=== PATIENT | male | born 1955 | race Caucasian/White ===

== ENCOUNTER 2018-02-06 14:48 | Inpatient (IN) | payer MEDICAID ==
[~2018-02-06] VITALS: Ht 167.6 cm; Wt 120.0 kg
[2018-02-06 16:00] LABS: BASOPHILS # (AUTO) 0.01 x10^3/uL (0-0.1); BASOPHILS % (AUTO) 0 % (0-1); EOSINOPHILS # (AUTO) 0.02 x10^3/uL (0-0.4); EOSINOPHILS % (AUTO) 0 % (1-7); LYMPHOCYTES % (AUTO) 6 % (22-44); MD NO; MEAN CORPUSCULAR HEMOGLOBIN 31.1 pg (27.5-34.5); MEAN CORPUSCULAR HGB CONC 33.2 g/dL (33.2-36.2); MEAN CORPUSCULAR VOLUME 93.6 fL (81-97); MEAN PLATELET VOLUME 7.6 fL (7.4-10.4); MONOCYTES # (AUTO) 1.32 x10^3/uL (0.2-0.8); MONOCYTES % (AUTO) 10 % (2-9); NEUTROPHILS # (AUTO) 11.04 x10^3/uL (1.8-6.8); NEUTROPHILS % (AUTO) 84 % (42-75); PLATELET COUNT 221 x10^3/uL (130-400); RED BLOOD COUNT 3.31 x10^6/uL (4.38-5.82); RED CELL DISTRIBUTION WIDTH 16.7 % (9.4-14.8)
[2018-02-06 16:12] LABS: ALBUMIN 1.8 g/dL (3.4-5.0); ANION GAP 9 mmol/L (5-15); CALCIUM 8.2 mg/dL (8.5-10.1); CHLORIDE 90 mmol/L (98-107); CREATININE 1.18 mg/dL (0.7-1.3)
[2018-02-06] MEDS ORDERED: AMPICILLIN/SULBACTAM 3 GM in SODIUM CHLORIDE 0.9% 100 ML IVPB ONE (16:30)
[2018-02-06 16:33] LABS: CREATINE KINASE, TOTAL 192 U/L (39-308); TROPONIN I < 0.015 ng/mL (0.000-0.045)
[2018-02-06] MEDS ORDERED: GLIM2TAB2 PO (17:18)
[2018-02-06] MEDS ORDERED: FURO20TA3 PO (17:18)
[2018-02-06] MEDS ORDERED: SPIR25TA5 PO (17:18)
[2018-02-06] MEDS ORDERED: GABA300C10 PO (17:18)
[2018-02-06] MEDS ORDERED: TAMS0.4C2 PO (17:18)
[2018-02-06] MEDS ORDERED: CHOL100012 PO (17:18)
[2018-02-06] MEDS ORDERED: SODIUM CHLORIDE 0.9% 1,000 ML IV ONE (17:32)
[2018-02-06] MEDS ORDERED: PIPERACILLIN/TAZO/PMX 3.375GM 50 ML ONE (17:58)
[2018-02-06] MEDS ORDERED: ONDANSETRON ODT 4 MG PO ONE (18:00)
[2018-02-06] MEDS ORDERED: MORPHINE SULFATE 4 MG/ML, 1ML IV PRN (18:00)
[2018-02-06] MEDS ORDERED: PIPERACILLIN/TAZO/PMX 3.375GM 50 ML IV ONE (18:00)
[2018-02-06] MEDS ORDERED: VANCOMYCIN PER PHARMACY MC ONE (18:00)
[2018-02-06] MEDS ORDERED: VANCOMYCIN 2,000 MG in SODIUM CHLORIDE 0.9% 500 ML IV ONE (18:00)
[2018-02-06] MEDS: INSULIN LISPRO 100 UNITS/ML, PEN SQ-INSULIN SCH (19:30)
[2018-02-06] MEDS ORDERED: VANCOMYCIN PER PHARMACY MC PRN (19:30)
[2018-02-06] MEDS ORDERED: ONDANSETRON 2MG/ML, 2ML IVPush PRN (19:30)
[2018-02-06 19:39] LABS: HCT (SEDRATE) 30.6 % (39.2-51.8)
[2018-02-06] MEDS ORDERED: POTASSIUM CHLORIDE 20 MEQ TAB.ER.PRT PO ONE (20:06)
[2018-02-06 20:15] VITALS: BP 149/82
[2018-02-06] MEDS ORDERED: PHARMACOKINETIC CONSULTATION MC ONE (20:30)
[2018-02-06] MEDS ORDERED: PHARMACOKINETIC MONITORING MC PRN (20:30)
[2018-02-06] MEDS: HEPARIN 5,000 UNITS/ML, 1ML SQ SCH (22:57)
[2018-02-06] MEDS: morphine SULFATE 10 MG/ML, 1ML IVPush PRN (22:57)
[2018-02-06] MEDS: FUROSEMIDE 20 MG TABLET PO SCH (22:58)
[2018-02-07] MEDS: PIPERACILLIN/TAZO/PMX 3.375GM 50 ML IV SCH ×4 (00:40→20:01)
[2018-02-07 01:21] VITALS: BP 137/68
[2018-02-07] MEDS: morphine SULFATE 10 MG/ML, 1ML IVPush PRN ×5 (03:19→23:00)
[2018-02-07] MEDS: INSULIN LISPRO 100 UNITS/ML, PEN SQ-INSULIN SCH ×4 (03:38→22:00)
[2018-02-07] MEDS: HEPARIN 5,000 UNITS/ML, 1ML SQ SCH ×3 (04:52→22:01)
[2018-02-07 05:01] LABS: ALANINE AMINOTRANSFERASE 30 U/L (12-78); ALBUMIN 1.6 g/dL (3.4-5.0); ANION GAP 3 mmol/L (5-15); CALCIUM 7.9 mg/dL (8.5-10.1); CHLORIDE 94 mmol/L (98-107)
[2018-02-07 05:04] LABS: ALKALINE PHOSPHATASE 463 U/L (45-117); BILIRUBIN,TOTAL 1.9 mg/dL (0.2-1.0); CREATININE 0.84 mg/dL (0.7-1.3); TOTAL PROTEIN 6.3 g/dL (6.4-8.2)
[2018-02-07 05:13] LABS: BASOPHILS # (AUTO) 0.04 x10^3/uL (0-0.1); BASOPHILS % (AUTO) 1 % (0-1); EOSINOPHILS % (AUTO) 1 % (1-7); LYMPHOCYTES # (AUTO) 0.82 x10^3/uL (1-3.4); LYMPHOCYTES % (AUTO) 10 % (22-44); MD NO; MEAN CORPUSCULAR HEMOGLOBIN 30.2 pg (27.5-34.5); MEAN CORPUSCULAR HGB CONC 32.4 g/dL (33.2-36.2); MEAN CORPUSCULAR VOLUME 93.2 fL (81-97); MEAN PLATELET VOLUME 7.8 fL (7.4-10.4); MONOCYTES # (AUTO) 0.69 x10^3/uL (0.2-0.8); MONOCYTES % (AUTO) 8 % (2-9); NEUTROPHILS # (AUTO) 6.72 x10^3/uL (1.8-6.8); NEUTROPHILS % (AUTO) 80 % (42-75); PLATELET COUNT 175 x10^3/uL (130-400); RED BLOOD COUNT 3.16 x10^6/uL (4.38-5.82); RED CELL DISTRIBUTION WIDTH 16.7 % (9.4-14.8)
[2018-02-07] MEDS: FUROSEMIDE 20 MG TABLET PO SCH ×2 (06:00→18:29)
[2018-02-07 06:51] VITALS: BP 130/49
[2018-02-07] MEDS: TAMSULOSIN 0.4 MG CAP.ER.24H PO SCH (08:49)
[2018-02-07] MEDS: SPIRONOLACTONE 25 MG TABLET PO SCH (08:49)
[2018-02-07] MEDS: GABAPENTIN 300 MG CAPSULE PO SCH (08:49)
[2018-02-07] MEDS: CHOLECALCIFEROL 1,000 UNIT TABLET PO SCH (08:50)
[2018-02-07] MEDS ORDERED: FUROSEMIDE 20 MG/2 ML IV ONE (09:00)
[2018-02-07 13:48] VITALS: BP 138/84
[2018-02-07] MEDS: VANCOMYCIN 2,500 MG in SODIUM CHLORIDE 0.9% 500 ML IV SCH (14:34)
[2018-02-07] MEDS ORDERED: VANCOMYCIN 2,200 MG in SODIUM CHLORIDE 0.9% 500 ML IV SCH (18:00)
[2018-02-07 19:45] VITALS: BP 132/78
[2018-02-08 01:22] VITALS: BP 132/71
[2018-02-08] MEDS: PIPERACILLIN/TAZO/PMX 3.375GM 50 ML IV SCH ×3 (02:33→20:18)
[2018-02-08] MEDS: morphine SULFATE 10 MG/ML, 1ML IVPush PRN ×2 (03:05→21:27)
[2018-02-08] MEDS: INSULIN LISPRO 100 UNITS/ML, PEN SQ-INSULIN SCH ×4 (04:00→23:05)
[2018-02-08] MEDS: HEPARIN 5,000 UNITS/ML, 1ML SQ SCH ×3 (05:00→21:01)
[2018-02-08 05:10] LABS: BASOPHILS # (AUTO) 0.03 x10^3/uL (0-0.1); BASOPHILS % (AUTO) 1 % (0-1); EOSINOPHILS # (AUTO) 0.09 x10^3/uL (0-0.4); EOSINOPHILS % (AUTO) 1 % (1-7); LYMPHOCYTES # (AUTO) 0.77 x10^3/uL (1-3.4); LYMPHOCYTES % (AUTO) 12 % (22-44); MD NO; MEAN CORPUSCULAR HEMOGLOBIN 31.2 pg (27.5-34.5); MEAN CORPUSCULAR HGB CONC 33.2 g/dL (33.2-36.2); MEAN CORPUSCULAR VOLUME 93.9 fL (81-97); MONOCYTES # (AUTO) 0.57 x10^3/uL (0.2-0.8); MONOCYTES % (AUTO) 9 % (2-9); NEUTROPHILS # (AUTO) 5.11 x10^3/uL (1.8-6.8); NEUTROPHILS % (AUTO) 78 % (42-75); PLATELET COUNT 167 x10^3/uL (130-400); RED BLOOD COUNT 2.99 x10^6/uL (4.38-5.82)
[2018-02-08 05:11] LABS: ALBUMIN 1.4 g/dL (3.4-5.0); ANION GAP 5 mmol/L (5-15); CALCIUM 7.8 mg/dL (8.5-10.1); CHLORIDE 97 mmol/L (98-107); CREATININE 0.77 mg/dL (0.7-1.3)
[2018-02-08] MEDS: FUROSEMIDE 20 MG TABLET PO SCH ×2 (05:57→18:35)
[2018-02-08] MEDS ORDERED: FUROSEMIDE 20 MG/2 ML IV ONE (06:00)
[2018-02-08 06:50] VITALS: BP 135/53
[2018-02-08] MEDS: SPIRONOLACTONE 25 MG TABLET PO SCH (08:14)
[2018-02-08] MEDS: GABAPENTIN 300 MG CAPSULE PO SCH (08:14)
[2018-02-08] MEDS: TAMSULOSIN 0.4 MG CAP.ER.24H PO SCH (08:14)
[2018-02-08] MEDS: CHOLECALCIFEROL 1,000 UNIT TABLET PO SCH (08:15)
[2018-02-08] MEDS: VANCOMYCIN 2,500 MG in SODIUM CHLORIDE 0.9% 500 ML IV SCH (13:09)
[2018-02-08] MEDS ORDERED: FENTANYL PF 250 MCG/5ML ONE (13:48)
[2018-02-08] MEDS ORDERED: MIDAZOLAM 1 MG/ML, 2ML ONE (13:48)
[2018-02-08] MEDS ORDERED: PROPOFOL 10 MG/ML, 20ML ONE (13:48)
[2018-02-08] MEDS ORDERED: ROCURONIUM 10MG/ML,5ML ONE (13:49)
[2018-02-08] MEDS ORDERED: SUCCINYLCHOLINE 20 MG/ML, 10ML ONE (13:50)
[2018-02-08] MEDS ORDERED: WATER-INJECTION,STERILE 10 ML IV ONE (14:28)
[2018-02-08] MEDS ORDERED: CEFAZOLIN 1,000 MG ONE ×2 (14:29)
[2018-02-08] MEDS ORDERED: MORPHINE SULFATE 4 MG/ML, 1ML IVPush PRN (14:30)
[2018-02-08] MEDS ORDERED: PROMETHAZINE 25 MG SUPP PR PRN (14:30)
[2018-02-08] MEDS ORDERED: ONDANSETRON 2MG/ML, 2ML IV PRN (14:30)
[2018-02-08] MEDS ORDERED: PROMETHAZINE 12.5 MG SUPP PR PRN (14:30)
[2018-02-08] MEDS ORDERED: ONDANSETRON ODT 8 MG PO PRN (14:30)
[2018-02-08] MEDS ORDERED: PROMETHAZINE 25 MG/ML, 1ML IV PRN (14:30)
[2018-02-08] MEDS ORDERED: ACETAMINOPHEN 325 MG TABLET PO PRN (14:30)
[2018-02-08] MEDS ORDERED: LABETALOL 5MG/ML, 20ML IV PRN (14:30)
[2018-02-08] MEDS ORDERED: hydrALAzine 20 MG/ML, 1ML IV PRN (14:30)
[2018-02-08] MEDS ORDERED: HYDROmorphone 1 MG/ML, 1ML IV PRN (14:30)
[2018-02-08] MEDS ORDERED: MEPERIDINE/PF 25MG/0.5ML IVPush PRN (14:30)
[2018-02-08] MEDS ORDERED: OXYcodone 5 MG/5 ML ORAL.SOL UDC PO PRN (14:30)
[2018-02-08] MEDS ORDERED: TOBRAMYCIN SULFATE 1.2 GM IMP ONE ×2 (14:36→15:00)
[2018-02-08] MEDS ORDERED: VANCOMYCIN 1,000 MG ONE (14:36)
[2018-02-08] MEDS ORDERED: OXYcodone 5 MG/5 ML ORAL.SOL UDC ONE (15:50)
[2018-02-08] MEDS ORDERED: FENTANYL PF 100 MCG/2ML ONE (15:50)
[2018-02-08] MEDS: FENTANYL PF 100 MCG/2ML IV PRN ×2 (16:03→16:15)
[2018-02-08 20:01] VITALS: BP 108/58
[2018-02-09 00:37] VITALS: BP 122/71
[2018-02-09] MEDS: morphine SULFATE 10 MG/ML, 1ML IVPush PRN ×4 (02:02→17:24)
[2018-02-09] MEDS: PIPERACILLIN/TAZO/PMX 3.375GM 50 ML IV SCH ×4 (02:35→22:03)
[2018-02-09] MEDS: INSULIN LISPRO 100 UNITS/ML, PEN SQ-INSULIN SCH ×4 (04:30→22:12)
[2018-02-09 05:41] LABS: ALBUMIN 1.5 g/dL (3.4-5.0); ANION GAP 3 mmol/L (5-15); CALCIUM 7.5 mg/dL (8.5-10.1); CHLORIDE 96 mmol/L (98-107)
[2018-02-09] MEDS: HEPARIN 5,000 UNITS/ML, 1ML SQ SCH ×3 (05:44→22:03)
[2018-02-09] MEDS: FUROSEMIDE 20 MG TABLET PO SCH ×2 (05:44→18:20)
[2018-02-09 05:46] LABS: ALANINE AMINOTRANSFERASE 25 U/L (12-78); ALKALINE PHOSPHATASE 398 U/L (45-117); BILIRUBIN,TOTAL 1.6 mg/dL (0.2-1.0); CREATININE 0.97 mg/dL (0.7-1.3); TOTAL PROTEIN 5.7 g/dL (6.4-8.2)
[2018-02-09 05:50] LABS: BASOPHILS # (AUTO) 0.03 x10^3/uL (0-0.1); BASOPHILS % (AUTO) 0 % (0-1); EOSINOPHILS # (AUTO) 0.04 x10^3/uL (0-0.4); EOSINOPHILS % (AUTO) 1 % (1-7); LYMPHOCYTES # (AUTO) 0.99 x10^3/uL (1-3.4); LYMPHOCYTES % (AUTO) 13 % (22-44); MD NO; MEAN CORPUSCULAR VOLUME 93.8 fL (81-97); MEAN PLATELET VOLUME 7.9 fL (7.4-10.4); MONOCYTES # (AUTO) 0.84 x10^3/uL (0.2-0.8); MONOCYTES % (AUTO) 11 % (2-9); NEUTROPHILS # (AUTO) 5.99 x10^3/uL (1.8-6.8); NEUTROPHILS % (AUTO) 76 % (42-75); PLATELET COUNT 224 x10^3/uL (130-400); RED CELL DISTRIBUTION WIDTH 16.7 % (9.4-14.8)
[2018-02-09 07:49] VITALS: BP 138/67
[2018-02-09] MEDS ORDERED: MORPHINE SULFATE 4 MG/ML, 1ML ONE (10:15)
[2018-02-09] MEDS: TAMSULOSIN 0.4 MG CAP.ER.24H PO SCH (10:33)
[2018-02-09] MEDS: CHOLECALCIFEROL 1,000 UNIT TABLET PO SCH (10:33)
[2018-02-09] MEDS: SPIRONOLACTONE 25 MG TABLET PO SCH (10:33)
[2018-02-09] MEDS: GABAPENTIN 300 MG CAPSULE PO SCH (10:33)
[2018-02-09] MEDS: BISACODYL 10 MG SUPP PR PRN (10:37)
[2018-02-09] MEDS: VANCOMYCIN 2,500 MG in SODIUM CHLORIDE 0.9% 500 ML IV SCH (13:00)
[2018-02-09 13:28] VITALS: BP 128/43
[2018-02-09] MEDS ORDERED: VANCOMYCIN 2,000 MG in SODIUM CHLORIDE 0.9% 500 ML IV SCH (15:30)
[2018-02-09] MEDS: VANCOMYCIN 2,000 MG in SODIUM CHLORIDE 0.9% 500 ML IV SCH (18:19)
[2018-02-10] VITALS (7 sets, daily range): BP systolic 105–139; BP diastolic 35–75
[2018-02-10] MEDS: morphine SULFATE 10 MG/ML, 1ML IVPush PRN ×3 (00:05→21:37)
[2018-02-10] MEDS: PIPERACILLIN/TAZO/PMX 3.375GM 50 ML IV SCH ×4 (04:15→23:07)
[2018-02-10] MEDS: INSULIN LISPRO 100 UNITS/ML, PEN SQ-INSULIN SCH ×5 (04:29→21:27)
[2018-02-10] MEDS: HEPARIN 5,000 UNITS/ML, 1ML SQ SCH ×3 (05:11→21:27)
[2018-02-10] MEDS: FUROSEMIDE 20 MG TABLET PO SCH ×2 (06:02→17:32)
[2018-02-10] MEDS: GABAPENTIN 300 MG CAPSULE PO SCH (10:13)
[2018-02-10] MEDS: TAMSULOSIN 0.4 MG CAP.ER.24H PO SCH (10:13)
[2018-02-10] MEDS: CHOLECALCIFEROL 1,000 UNIT TABLET PO SCH (10:13)
[2018-02-10] MEDS: SPIRONOLACTONE 25 MG TABLET PO SCH (10:13)
[2018-02-10] MEDS: VANCOMYCIN 2,000 MG in SODIUM CHLORIDE 0.9% 500 ML IV SCH (17:32)
[2018-02-11 00:25] VITALS: BP 117/42
[2018-02-11] MEDS: PIPERACILLIN/TAZO/PMX 3.375GM 50 ML IV SCH ×4 (04:56→22:36)
[2018-02-11] MEDS: HEPARIN 5,000 UNITS/ML, 1ML SQ SCH ×3 (04:57→23:32)
[2018-02-11 05:33] LABS: ANION GAP 4 mmol/L (5-15); CALCIUM 7.3 mg/dL (8.5-10.1); CHLORIDE 98 mmol/L (98-107)
[2018-02-11 05:34] LABS: CREATININE 0.98 mg/dL (0.7-1.3)
[2018-02-11 06:51] VITALS: BP 109/34
[2018-02-11] MEDS ORDERED: MAGNESIUM SULFATE 3 GM in SODIUM CHLORIDE 0.9% 100 ML IV ONE (07:30)
[2018-02-11] MEDS: INSULIN LISPRO 100 UNITS/ML, PEN SQ-INSULIN SCH ×4 (07:53→20:28)
[2018-02-11 07:58] VITALS: BP 118/53
[2018-02-11] MEDS: SPIRONOLACTONE 25 MG TABLET PO SCH (09:00)
[2018-02-11] MEDS: CHOLECALCIFEROL 1,000 UNIT TABLET PO SCH (10:02)
[2018-02-11] MEDS: FUROSEMIDE 20 MG TABLET PO SCH ×2 (10:03→18:46)
[2018-02-11] MEDS: GABAPENTIN 300 MG CAPSULE PO SCH (10:03)
[2018-02-11] MEDS: TAMSULOSIN 0.4 MG CAP.ER.24H PO SCH (10:03)
[2018-02-11 10:48] LABS: MEAN CORPUSCULAR HEMOGLOBIN 30.4 pg (27.5-34.5); MEAN CORPUSCULAR HGB CONC 33.1 g/dL (33.2-36.2); MEAN CORPUSCULAR VOLUME 91.9 fL (81-97); RED BLOOD COUNT 2.52 x10^6/uL (4.38-5.82); RED CELL DISTRIBUTION WIDTH 16.8 % (9.4-14.8)
[2018-02-11 11:03] LABS: MEAN PLATELET VOLUME 7.6 fL (7.4-10.4); PLATELET COUNT 118 x10^3/uL (130-400)
[2018-02-11 11:04] LABS: BASOPHILS # (AUTO) 0.04 x10^3/uL (0-0.1); BASOPHILS % (AUTO) 1 % (0-1); EOSINOPHILS # (AUTO) 0.13 x10^3/uL (0-0.4); EOSINOPHILS % (AUTO) 3 % (1-7); LYMPHOCYTES # (AUTO) 0.83 x10^3/uL (1-3.4); LYMPHOCYTES % (AUTO) 17 % (22-44); MD SCAN; MONOCYTES # (AUTO) 0.59 x10^3/uL (0.2-0.8); MONOCYTES % (AUTO) 12 % (2-9); NEUTROPHILS # (AUTO) 3.29 x10^3/uL (1.8-6.8); NEUTROPHILS % (AUTO) 68 % (42-75)
[2018-02-11 12:00] VITALS: BP 108/44
[2018-02-11 14:13] LABS: HEMOGLOBIN A1C 5.8 % (4.2-6.3)
[2018-02-11 19:05] VITALS: BP 112/61
[2018-02-11] MEDS: VANCOMYCIN 2,000 MG in SODIUM CHLORIDE 0.9% 500 ML IV SCH (20:13)
[2018-02-11] MEDS: morphine SULFATE 10 MG/ML, 1ML IVPush PRN (20:28)
[2018-02-12 01:03] VITALS: BP 118/65
[2018-02-12] MEDS: PIPERACILLIN/TAZO/PMX 3.375GM 50 ML IV SCH ×2 (04:30→10:24)
[2018-02-12 04:50] LABS: BASOPHILS # (AUTO) 0.02 x10^3/uL (0-0.1); BASOPHILS % (AUTO) 0 % (0-1); EOSINOPHILS # (AUTO) 0.11 x10^3/uL (0-0.4); EOSINOPHILS % (AUTO) 2 % (1-7); LYMPHOCYTES # (AUTO) 0.79 x10^3/uL (1-3.4); LYMPHOCYTES % (AUTO) 16 % (22-44); MD NO; MEAN CORPUSCULAR HEMOGLOBIN 30.1 pg (27.5-34.5); MEAN CORPUSCULAR VOLUME 91.2 fL (81-97); MEAN PLATELET VOLUME 7.8 fL (7.4-10.4); MONOCYTES # (AUTO) 0.67 x10^3/uL (0.2-0.8); MONOCYTES % (AUTO) 13 % (2-9); NEUTROPHILS # (AUTO) 3.41 x10^3/uL (1.8-6.8); NEUTROPHILS % (AUTO) 68 % (42-75); PLATELET COUNT 146 x10^3/uL (130-400); RED BLOOD COUNT 2.63 x10^6/uL (4.38-5.82); RED CELL DISTRIBUTION WIDTH 16.6 % (9.4-14.8)
[2018-02-12 04:55] LABS: ANION GAP 5 mmol/L (5-15); CALCIUM 7.5 mg/dL (8.5-10.1); CHLORIDE 99 mmol/L (98-107); CREATININE 0.91 mg/dL (0.7-1.3)
[2018-02-12] MEDS: FUROSEMIDE 20 MG TABLET PO SCH ×2 (05:37→17:43)
[2018-02-12 07:16] VITALS: BP 106/64
[2018-02-12] MEDS: morphine SULFATE 10 MG/ML, 1ML IVPush PRN ×2 (08:09→20:50)
[2018-02-12] MEDS: SPIRONOLACTONE 25 MG TABLET PO SCH (08:10)
[2018-02-12] MEDS: HEPARIN 5,000 UNITS/ML, 1ML SQ SCH ×2 (08:10→16:03)
[2018-02-12] MEDS: TAMSULOSIN 0.4 MG CAP.ER.24H PO SCH (08:10)
[2018-02-12] MEDS: INSULIN LISPRO 100 UNITS/ML, PEN SQ-INSULIN SCH ×4 (08:10→20:51)
[2018-02-12] MEDS: CHOLECALCIFEROL 1,000 UNIT TABLET PO SCH (08:11)
[2018-02-12] MEDS: GABAPENTIN 300 MG CAPSULE PO SCH (08:11)
[2018-02-12 12:38] VITALS: BP 106/65
[2018-02-12] MEDS: DAPTOMYCIN 800 MG in SODIUM CHLORIDE 0.9% 100 ML IV SCH (15:58)
[2018-02-12 18:52] VITALS: BP 113/61
[2018-02-13 01:47] VITALS: BP 128/74
[2018-02-13] MEDS: BISACODYL 10 MG SUPP PR PRN (04:36)
[2018-02-13 05:12] LABS: ANION GAP 2 mmol/L (5-15); CALCIUM 7.6 mg/dL (8.5-10.1); CHLORIDE 100 mmol/L (98-107); CREATININE 0.85 mg/dL (0.7-1.3)
[2018-02-13 05:13] LABS: ALANINE AMINOTRANSFERASE 20 U/L (12-78); ALBUMIN 1.3 g/dL (3.4-5.0)
[2018-02-13 05:15] LABS: ALKALINE PHOSPHATASE 308 U/L (45-117); BILIRUBIN,TOTAL 1.2 mg/dL (0.2-1.0); CREATINE KINASE, TOTAL 35 U/L (39-308); TOTAL PROTEIN 5.5 g/dL (6.4-8.2)
[2018-02-13] MEDS: FUROSEMIDE 20 MG TABLET PO SCH ×2 (05:58→17:44)
[2018-02-13 06:38] VITALS: BP 100/61
[2018-02-13] MEDS: HEPARIN 5,000 UNITS/ML, 1ML SQ SCH ×3 (08:09→16:02)
[2018-02-13] MEDS: CHOLECALCIFEROL 1,000 UNIT TABLET PO SCH (08:09)
[2018-02-13] MEDS: INSULIN LISPRO 100 UNITS/ML, PEN SQ-INSULIN SCH ×4 (08:09→19:57)
[2018-02-13] MEDS: TAMSULOSIN 0.4 MG CAP.ER.24H PO SCH (08:09)
[2018-02-13] MEDS: SPIRONOLACTONE 25 MG TABLET PO SCH (08:09)
[2018-02-13] MEDS: GABAPENTIN 300 MG CAPSULE PO SCH (08:09)
[2018-02-13 13:39] VITALS: BP 124/68
[2018-02-13] MEDS: DAPTOMYCIN 800 MG in SODIUM CHLORIDE 0.9% 100 ML IV SCH (16:02)
[2018-02-13] MEDS: OXYcodone/APAP 10/325MG TABLET PO PRN ×2 (16:19→22:27)
[2018-02-13 19:10] VITALS: BP 104/66
[2018-02-14] MEDS: HEPARIN 5,000 UNITS/ML, 1ML SQ SCH ×3 (00:12→17:30)
[2018-02-14 02:37] VITALS: BP 113/65
[2018-02-14] MEDS: FUROSEMIDE 20 MG TABLET PO SCH ×2 (05:23→17:33)
[2018-02-14] MEDS: OXYcodone/APAP 10/325MG TABLET PO PRN ×2 (05:23→20:05)
[2018-02-14] MEDS: INSULIN LISPRO 100 UNITS/ML, PEN SQ-INSULIN SCH ×4 (07:00→20:05)
[2018-02-14 07:47] VITALS: BP 101/60
[2018-02-14] MEDS: TAMSULOSIN 0.4 MG CAP.ER.24H PO SCH (09:14)
[2018-02-14] MEDS: SPIRONOLACTONE 25 MG TABLET PO SCH (09:14)
[2018-02-14] MEDS: GABAPENTIN 300 MG CAPSULE PO SCH (09:15)
[2018-02-14] MEDS: MAGNESIUM CHLORIDE 64 MG TABLET.DR PO SCH ×2 (09:15→20:05)
[2018-02-14] MEDS: CHOLECALCIFEROL 1,000 UNIT TABLET PO SCH (09:15)
[2018-02-14] MEDS: DAPTOMYCIN 800 MG in SODIUM CHLORIDE 0.9% 100 ML IV SCH (14:32)
[2018-02-14 14:52] VITALS: BP 137/73
[2018-02-14 18:48] VITALS: BP 116/44
[2018-02-15 00:09] VITALS: BP 110/67
[2018-02-15] MEDS: HEPARIN 5,000 UNITS/ML, 1ML SQ SCH ×3 (01:46→17:18)
[2018-02-15] MEDS: FUROSEMIDE 20 MG TABLET PO SCH ×2 (06:07→17:18)
[2018-02-15] MEDS: OXYcodone/APAP 10/325MG TABLET PO PRN ×2 (06:10→10:01)
[2018-02-15 06:53] VITALS: BP 137/69
[2018-02-15] MEDS: INSULIN LISPRO 100 UNITS/ML, PEN SQ-INSULIN SCH ×4 (07:00→20:31)
[2018-02-15] MEDS: CHOLECALCIFEROL 1,000 UNIT TABLET PO SCH (10:01)
[2018-02-15] MEDS: TAMSULOSIN 0.4 MG CAP.ER.24H PO SCH (10:01)
[2018-02-15] MEDS: GABAPENTIN 300 MG CAPSULE PO SCH (10:01)
[2018-02-15] MEDS: MAGNESIUM CHLORIDE 64 MG TABLET.DR PO SCH ×2 (10:02→20:31)
[2018-02-15] MEDS: SPIRONOLACTONE 25 MG TABLET PO SCH (10:08)
[2018-02-15 15:12] VITALS: BP 119/53
[2018-02-15] MEDS: DAPTOMYCIN 800 MG in SODIUM CHLORIDE 0.9% 100 ML IV SCH (17:17)
[2018-02-15 18:36] VITALS: BP 131/66
[2018-02-16 00:21] VITALS: BP 117/67
[2018-02-16] MEDS: HEPARIN 5,000 UNITS/ML, 1ML SQ SCH ×3 (01:42→17:12)
[2018-02-16] MEDS: FUROSEMIDE 20 MG TABLET PO SCH ×2 (06:31→19:28)
[2018-02-16 08:00] VITALS: BP 98/47
[2018-02-16] MEDS: INSULIN LISPRO 100 UNITS/ML, PEN SQ-INSULIN SCH ×4 (08:18→20:36)
[2018-02-16] MEDS: SPIRONOLACTONE 25 MG TABLET PO SCH (08:19)
[2018-02-16] MEDS: TAMSULOSIN 0.4 MG CAP.ER.24H PO SCH (08:19)
[2018-02-16] MEDS: CHOLECALCIFEROL 1,000 UNIT TABLET PO SCH (08:19)
[2018-02-16] MEDS: GABAPENTIN 300 MG CAPSULE PO SCH (08:20)
[2018-02-16] MEDS: MAGNESIUM CHLORIDE 64 MG TABLET.DR PO SCH ×2 (08:20→20:36)
[2018-02-16 14:00] VITALS: BP 119/67
[2018-02-16] MEDS: OXYcodone/APAP 10/325MG TABLET PO PRN ×2 (15:26→22:42)
[2018-02-16] MEDS: DAPTOMYCIN 800 MG in SODIUM CHLORIDE 0.9% 100 ML IV SCH (15:54)
[2018-02-16 20:02] VITALS: BP 121/58
[2018-02-17] MEDS: HEPARIN 5,000 UNITS/ML, 1ML SQ SCH ×3 (01:30→16:56)
[2018-02-17 02:00] VITALS: BP 107/49
[2018-02-17] MEDS: FUROSEMIDE 20 MG TABLET PO SCH ×2 (05:37→17:43)
[2018-02-17] MEDS: OXYcodone/APAP 10/325MG TABLET PO PRN ×2 (05:37→11:57)
[2018-02-17 06:42] VITALS: BP 114/58
[2018-02-17] MEDS: INSULIN LISPRO 100 UNITS/ML, PEN SQ-INSULIN SCH ×4 (08:20→22:41)
[2018-02-17] MEDS: CHOLECALCIFEROL 1,000 UNIT TABLET PO SCH (08:21)
[2018-02-17] MEDS: MAGNESIUM CHLORIDE 64 MG TABLET.DR PO SCH ×2 (08:21→22:29)
[2018-02-17] MEDS: SPIRONOLACTONE 25 MG TABLET PO SCH (08:21)
[2018-02-17] MEDS: TAMSULOSIN 0.4 MG CAP.ER.24H PO SCH (08:21)
[2018-02-17] MEDS: GABAPENTIN 300 MG CAPSULE PO SCH (08:21)
[2018-02-17] MEDS: DAPTOMYCIN 800 MG in SODIUM CHLORIDE 0.9% 100 ML IV SCH (15:24)
[2018-02-17 16:00] VITALS: BP 128/67
[2018-02-17 18:56] VITALS: BP 121/64
[2018-02-18] MEDS: HEPARIN 5,000 UNITS/ML, 1ML SQ SCH ×3 (00:29→17:12)
[2018-02-18 00:30] VITALS: BP 108/62
[2018-02-18] MEDS: OXYcodone/APAP 10/325MG TABLET PO PRN ×2 (04:34→17:13)
[2018-02-18 05:08] LABS: BASOPHILS # (AUTO) 0.04 x10^3/uL (0-0.1); BASOPHILS % (AUTO) 1 % (0-1); EOSINOPHILS # (AUTO) 0.06 x10^3/uL (0-0.4); EOSINOPHILS % (AUTO) 1 % (1-7); LYMPHOCYTES # (AUTO) 0.93 x10^3/uL (1-3.4); LYMPHOCYTES % (AUTO) 20 % (22-44); MD NO; MEAN CORPUSCULAR HEMOGLOBIN 28.9 pg (27.5-34.5); MEAN CORPUSCULAR HGB CONC 32.7 g/dL (33.2-36.2); MEAN CORPUSCULAR VOLUME 88.3 fL (81-97); MEAN PLATELET VOLUME 8.3 fL (7.4-10.4); MONOCYTES # (AUTO) 0.67 x10^3/uL (0.2-0.8); MONOCYTES % (AUTO) 14 % (2-9); NEUTROPHILS # (AUTO) 2.99 x10^3/uL (1.8-6.8); NEUTROPHILS % (AUTO) 64 % (42-75); PLATELET COUNT 167 x10^3/uL (130-400); RED BLOOD COUNT 2.61 x10^6/uL (4.38-5.82); RED CELL DISTRIBUTION WIDTH 16.7 % (9.4-14.8)
[2018-02-18 05:13] LABS: ALBUMIN 1.5 g/dL (3.4-5.0); ANION GAP 6 mmol/L (5-15); CALCIUM 7.5 mg/dL (8.5-10.1); CHLORIDE 101 mmol/L (98-107)
[2018-02-18 05:22] LABS: ALANINE AMINOTRANSFERASE 20 U/L (12-78); ALKALINE PHOSPHATASE 373 U/L (45-117); CREATINE KINASE, TOTAL 44 U/L (39-308); CREATININE 0.71 mg/dL (0.7-1.3); TOTAL PROTEIN 5.7 g/dL (6.4-8.2)
[2018-02-18] MEDS: FUROSEMIDE 20 MG TABLET PO SCH ×2 (05:59→17:13)
[2018-02-18] MEDS: morphine SULFATE 10 MG/ML, 1ML IVPush PRN (05:59)
[2018-02-18 06:03] LABS: HCT (SEDRATE) 22.9 % (39.2-51.8)
[2018-02-18] MEDS: INSULIN LISPRO 100 UNITS/ML, PEN SQ-INSULIN SCH ×3 (07:00→17:13)
[2018-02-18 07:48] VITALS: BP 113/39
[2018-02-18] MEDS: MAGNESIUM CHLORIDE 64 MG TABLET.DR PO SCH (08:27)
[2018-02-18] MEDS: TAMSULOSIN 0.4 MG CAP.ER.24H PO SCH (08:28)
[2018-02-18] MEDS: CHOLECALCIFEROL 1,000 UNIT TABLET PO SCH (08:28)
[2018-02-18] MEDS: SPIRONOLACTONE 25 MG TABLET PO SCH (08:28)
[2018-02-18] MEDS: GABAPENTIN 300 MG CAPSULE PO SCH (08:28)
[2018-02-18 13:05] VITALS: BP 121/36
[2018-02-18] MEDS: DAPTOMYCIN 800 MG in SODIUM CHLORIDE 0.9% 100 ML IV SCH (14:31)
[2018-02-18 19:08] VITALS: BP 121/71
[2018-02-19 00:03] VITALS: BP 117/58
[2018-02-19] MEDS: HEPARIN 5,000 UNITS/ML, 1ML SQ SCH ×3 (00:23→17:19)
[2018-02-19] MEDS: MAGNESIUM CHLORIDE 64 MG TABLET.DR PO SCH ×3 (00:23→20:49)
[2018-02-19] MEDS: OXYcodone/APAP 10/325MG TABLET PO PRN ×3 (00:23→20:49)
[2018-02-19] MEDS: INSULIN LISPRO 100 UNITS/ML, PEN SQ-INSULIN SCH ×5 (00:24→20:56)
[2018-02-19] MEDS: morphine SULFATE 10 MG/ML, 1ML IVPush PRN (05:50)
[2018-02-19] MEDS: FUROSEMIDE 20 MG TABLET PO SCH ×2 (05:50→17:19)
[2018-02-19 08:30] VITALS: BP 142/81
[2018-02-19] MEDS: TAMSULOSIN 0.4 MG CAP.ER.24H PO SCH (08:39)
[2018-02-19] MEDS: GABAPENTIN 300 MG CAPSULE PO SCH (08:39)
[2018-02-19] MEDS: SPIRONOLACTONE 25 MG TABLET PO SCH (08:40)
[2018-02-19] MEDS: ACETAMINOPHEN 325 MG TABLET PO PRN (09:21)
[2018-02-19] MEDS: CHOLECALCIFEROL 1,000 UNIT TABLET PO SCH (09:22)
[2018-02-19] MEDS: DAPTOMYCIN 800 MG in SODIUM CHLORIDE 0.9% 100 ML IV SCH (14:33)
[2018-02-19 14:35] VITALS: BP 131/48
[2018-02-19 19:13] LABS: CULTURE INDICATED? YES; MICROSCOPIC INDICATED
[2018-02-19 20:15] VITALS: BP 137/52
[2018-02-20] MEDS: HEPARIN 5,000 UNITS/ML, 1ML SQ SCH ×3 (01:30→18:09)
[2018-02-20 02:44] VITALS: BP 105/55
[2018-02-20] MEDS: OXYcodone/APAP 10/325MG TABLET PO PRN ×2 (02:50→22:30)
[2018-02-20 05:30] LABS: MEAN CORPUSCULAR HEMOGLOBIN 28.6 pg (27.5-34.5); MEAN CORPUSCULAR HGB CONC 32.7 g/dL (33.2-36.2); MEAN CORPUSCULAR VOLUME 87.6 fL (81-97); MEAN PLATELET VOLUME 8.2 fL (7.4-10.4); PLATELET COUNT 139 x10^3/uL (130-400); RED BLOOD COUNT 2.62 x10^6/uL (4.38-5.82); RED CELL DISTRIBUTION WIDTH 16.5 % (9.4-14.8)
[2018-02-20 05:34] LABS: ANION GAP 4 mmol/L (5-15); CALCIUM 7.5 mg/dL (8.5-10.1); CHLORIDE 103 mmol/L (98-107); CREATININE 0.79 mg/dL (0.7-1.3)
[2018-02-20 05:56] LABS: MD YES
[2018-02-20 06:14] LABS: BAND#(MANUAL) 0.03 x10^3/uL; BANDS%(MANUAL) 1 % (0-7); BASOS#(MANUAL) 0.07 x10^3/uL (0-0.1); BASOS% (MANUAL) 2 % (0-1); LYMPH#(MANUAL) 0.92 x10^3/uL (1-3.4); LYMPHS% (MANUAL) 28 % (22-44); MONOS#(MANUAL) 0.43 x10^3/uL (0.3-2.7); MONOS% (MANUAL) 13 % (2-9); SEG#(MANUAL) 1.85 x10^3/uL (1.8-6.8); SEGS% (MANUAL) 56 % (42-75)
[2018-02-20 06:15] LABS: ANISOCYTOSIS 1+; HYPOCHROMIA 1+; POLYCHROMASIA 1+
[2018-02-20 06:16] LABS: <PLATELET ESTIMATE> ADEQUATE; <PLT MORPHOLOGY> NORMAL PLT MORPH
[2018-02-20] MEDS: ACETAMINOPHEN 325 MG TABLET PO PRN (06:25)
[2018-02-20] MEDS: FUROSEMIDE 20 MG TABLET PO SCH ×2 (06:25→18:10)
[2018-02-20] MEDS ORDERED: MAGNESIUM SULFATE PMX 2GM/50ML 50 ML IV ONE (06:30)
[2018-02-20 06:55] VITALS: BP 108/43
[2018-02-20] MEDS: INSULIN LISPRO 100 UNITS/ML, PEN SQ-INSULIN SCH ×4 (07:40→22:30)
[2018-02-20] MEDS: MAGNESIUM CHLORIDE 64 MG TABLET.DR PO SCH ×2 (07:52→22:30)
[2018-02-20] MEDS: SPIRONOLACTONE 25 MG TABLET PO SCH (07:53)
[2018-02-20] MEDS: TAMSULOSIN 0.4 MG CAP.ER.24H PO SCH (07:53)
[2018-02-20] MEDS: CHOLECALCIFEROL 1,000 UNIT TABLET PO SCH (07:53)
[2018-02-20] MEDS: GABAPENTIN 300 MG CAPSULE PO SCH (07:53)
[2018-02-20 13:14] VITALS: BP 137/27
[2018-02-20] MEDS: DAPTOMYCIN 800 MG in SODIUM CHLORIDE 0.9% 100 ML IV SCH (18:09)
[2018-02-20 18:27] VITALS: BP 118/56
[2018-02-21] MEDS: ACETAMINOPHEN 325 MG TABLET PO PRN (01:04)
[2018-02-21] MEDS: HEPARIN 5,000 UNITS/ML, 1ML SQ SCH ×3 (01:09→16:43)
[2018-02-21 01:15] VITALS: BP 128/55
[2018-02-21] MEDS: morphine SULFATE 10 MG/ML, 1ML IVPush PRN ×3 (02:29→23:40)
[2018-02-21 04:59] LABS: MEAN CORPUSCULAR HEMOGLOBIN 28.3 pg (27.5-34.5); MEAN CORPUSCULAR HGB CONC 32.7 g/dL (33.2-36.2); MEAN CORPUSCULAR VOLUME 86.5 fL (81-97); MEAN PLATELET VOLUME 8.4 fL (7.4-10.4); PLATELET COUNT 137 x10^3/uL (130-400); RED BLOOD COUNT 2.78 x10^6/uL (4.38-5.82); RED CELL DISTRIBUTION WIDTH 16.7 % (9.4-14.8)
[2018-02-21] MEDS: FUROSEMIDE 20 MG TABLET PO SCH ×2 (06:18→16:43)
[2018-02-21 06:31] LABS: MD YES
[2018-02-21 07:07] LABS: <PLATELET ESTIMATE> ADEQUATE; <PLT MORPHOLOGY> NORMAL PLT MORPH; ANISOCYTOSIS 1+; BAND#(MANUAL) 1.01 x10^3/uL; BANDS%(MANUAL) 26 % (0-7); HYPOCHROMIA 1+; LYMPH#(MANUAL) 0.62 x10^3/uL (1-3.4); LYMPHS% (MANUAL) 16 % (22-44); POLYCHROMASIA 1+; SEG#(MANUAL) 2.26 x10^3/uL (1.8-6.8); SEGS% (MANUAL) 58 % (42-75)
[2018-02-21 07:14] VITALS: BP 118/60
[2018-02-21] MEDS: INSULIN LISPRO 100 UNITS/ML, PEN SQ-INSULIN SCH ×4 (07:29→19:42)
[2018-02-21] MEDS: CHOLECALCIFEROL 1,000 UNIT TABLET PO SCH (09:15)
[2018-02-21] MEDS: GABAPENTIN 300 MG CAPSULE PO SCH (09:15)
[2018-02-21] MEDS: MAGNESIUM CHLORIDE 64 MG TABLET.DR PO SCH ×2 (09:15→19:35)
[2018-02-21] MEDS: SPIRONOLACTONE 25 MG TABLET PO SCH (09:15)
[2018-02-21] MEDS: TAMSULOSIN 0.4 MG CAP.ER.24H PO SCH (09:15)
[2018-02-21 12:45] VITALS: BP 128/75
[2018-02-21] MEDS: CEFTAROLINE 600 MG in SODIUM CHLORIDE 0.9% 100 ML IV SCH ×2 (13:41→19:35)
[2018-02-21 18:40] VITALS: BP 120/55
[2018-02-21] MEDS: OXYcodone/APAP 10/325MG TABLET PO PRN (19:35)
[2018-02-22] MEDS: HEPARIN 5,000 UNITS/ML, 1ML SQ SCH ×3 (01:30→16:58)
[2018-02-22] MEDS: OXYcodone/APAP 10/325MG TABLET PO PRN ×2 (03:06→20:22)
[2018-02-22 03:26] VITALS: BP 135/54
[2018-02-22] MEDS: CEFTAROLINE 600 MG in SODIUM CHLORIDE 0.9% 100 ML IV SCH ×3 (05:03→20:22)
[2018-02-22] MEDS: FUROSEMIDE 20 MG TABLET PO SCH ×2 (05:03→16:58)
[2018-02-22 06:50] VITALS: BP 119/48
[2018-02-22] MEDS: INSULIN LISPRO 100 UNITS/ML, PEN SQ-INSULIN SCH ×4 (08:43→20:47)
[2018-02-22] MEDS: GABAPENTIN 300 MG CAPSULE PO SCH (08:43)
[2018-02-22] MEDS: MAGNESIUM CHLORIDE 64 MG TABLET.DR PO SCH ×2 (08:43→20:47)
[2018-02-22] MEDS: SPIRONOLACTONE 25 MG TABLET PO SCH (08:44)
[2018-02-22] MEDS: CHOLECALCIFEROL 1,000 UNIT TABLET PO SCH (08:44)
[2018-02-22] MEDS: TAMSULOSIN 0.4 MG CAP.ER.24H PO SCH (08:44)
[2018-02-22 14:33] VITALS: BP 119/56
[2018-02-22 21:30] VITALS: BP 128/57
[2018-02-23] MEDS: HEPARIN 5,000 UNITS/ML, 1ML SQ SCH ×3 (01:57→17:39)
[2018-02-23] MEDS: CEFTAROLINE 600 MG in SODIUM CHLORIDE 0.9% 100 ML IV SCH ×3 (04:35→20:11)
[2018-02-23] MEDS: FUROSEMIDE 20 MG TABLET PO SCH ×2 (06:18→17:39)
[2018-02-23] MEDS: OXYcodone/APAP 10/325MG TABLET PO PRN (06:31)
[2018-02-23] MEDS: INSULIN LISPRO 100 UNITS/ML, PEN SQ-INSULIN SCH ×4 (07:39→21:00)
[2018-02-23 09:06] VITALS: BP 127/51
[2018-02-23] MEDS: SPIRONOLACTONE 25 MG TABLET PO SCH (10:00)
[2018-02-23] MEDS: MAGNESIUM CHLORIDE 64 MG TABLET.DR PO SCH ×2 (10:00→21:59)
[2018-02-23] MEDS: TAMSULOSIN 0.4 MG CAP.ER.24H PO SCH (10:00)
[2018-02-23] MEDS: GABAPENTIN 300 MG CAPSULE PO SCH (10:00)
[2018-02-23] MEDS: CHOLECALCIFEROL 1,000 UNIT TABLET PO SCH (10:01)
[2018-02-23] MEDS ORDERED: GENTAMICIN CRM 0.1%, 30GM TP SCH (11:30)
[2018-02-23 12:41] VITALS: BP 122/32
[2018-02-23] MEDS: ACETAMINOPHEN 325 MG TABLET PO PRN (16:24)
[2018-02-23 20:20] VITALS: BP 109/59
[2018-02-24 01:47] VITALS: BP 103/51
[2018-02-24] MEDS: HEPARIN 5,000 UNITS/ML, 1ML SQ SCH ×3 (02:24→16:44)
[2018-02-24] MEDS: CEFTAROLINE 600 MG in SODIUM CHLORIDE 0.9% 100 ML IV SCH ×3 (04:39→20:05)
[2018-02-24 05:14] LABS: ALBUMIN 1.5 g/dL (3.4-5.0); ANION GAP 7 mmol/L (5-15); CALCIUM 7.5 mg/dL (8.5-10.1); CHLORIDE 106 mmol/L (98-107); CREATININE 0.72 mg/dL (0.7-1.3); MEAN CORPUSCULAR HEMOGLOBIN 28.1 pg (27.5-34.5); MEAN CORPUSCULAR HGB CONC 32.4 g/dL (33.2-36.2); MEAN CORPUSCULAR VOLUME 86.8 fL (81-97); PLATELET COUNT 114 x10^3/uL (130-400); RED BLOOD COUNT 2.91 x10^6/uL (4.38-5.82); RED CELL DISTRIBUTION WIDTH 16.2 % (9.4-14.8)
[2018-02-24] MEDS: FUROSEMIDE 20 MG TABLET PO SCH (06:00)
[2018-02-24 06:28] LABS: BASOPHILS # (AUTO) 0.05 x10^3/uL (0-0.1); BASOPHILS % (AUTO) 1 % (0-1); EOSINOPHILS % (AUTO) 3 % (1-7); LYMPHOCYTES % (AUTO) 37 % (22-44); MD SCAN; MONOCYTES # (AUTO) 0.32 x10^3/uL (0.2-0.8); MONOCYTES % (AUTO) 9 % (2-9); NEUTROPHILS # (AUTO) 1.77 x10^3/uL (1.8-6.8); NEUTROPHILS % (AUTO) 50 % (42-75)
[2018-02-24 06:57] VITALS: BP 128/61
[2018-02-24] MEDS: INSULIN LISPRO 100 UNITS/ML, PEN SQ-INSULIN SCH ×4 (07:00→20:13)
[2018-02-24] MEDS: SPIRONOLACTONE 25 MG TABLET PO SCH (09:00)
[2018-02-24] MEDS ORDERED: FUROSEMIDE 40 MG TABLET ONE (09:53)
[2018-02-24] MEDS: GABAPENTIN 300 MG CAPSULE PO SCH (10:01)
[2018-02-24] MEDS: CHOLECALCIFEROL 1,000 UNIT TABLET PO SCH (10:01)
[2018-02-24] MEDS: OXYcodone/APAP 10/325MG TABLET PO PRN ×2 (10:01→20:04)
[2018-02-24] MEDS: GENTAMICIN OINT 0.1% 15GM TP SCH (10:02)
[2018-02-24] MEDS: TAMSULOSIN 0.4 MG CAP.ER.24H PO SCH (10:02)
[2018-02-24] MEDS: FUROSEMIDE 40 MG TABLET PO SCH (10:02)
[2018-02-24] MEDS: MAGNESIUM CHLORIDE 64 MG TABLET.DR PO SCH ×2 (10:02→20:04)
[2018-02-24 10:51] LABS: HCT (SEDRATE) 25.3 % (39.2-51.8)
[2018-02-24 13:02] VITALS: BP 133/67
[2018-02-24 19:00] VITALS: BP 118/60
[2018-02-25] MEDS: HEPARIN 5,000 UNITS/ML, 1ML SQ SCH ×3 (00:31→16:43)
[2018-02-25 03:40] VITALS: BP 113/53
[2018-02-25] MEDS: CEFTAROLINE 600 MG in SODIUM CHLORIDE 0.9% 100 ML IV SCH ×3 (04:32→20:52)
[2018-02-25] MEDS: OXYcodone/APAP 10/325MG TABLET PO PRN ×2 (05:29→22:08)
[2018-02-25 06:32] LABS: ALANINE AMINOTRANSFERASE 22 U/L (12-78); ALBUMIN 1.5 g/dL (3.4-5.0); ANION GAP 7 mmol/L (5-15); CALCIUM 7.6 mg/dL (8.5-10.1); CHLORIDE 105 mmol/L (98-107); CREATININE 0.67 mg/dL (0.7-1.3)
[2018-02-25 06:41] LABS: ALKALINE PHOSPHATASE 431 U/L (45-117); BILIRUBIN,TOTAL 0.8 mg/dL (0.2-1.0)
[2018-02-25] MEDS: INSULIN LISPRO 100 UNITS/ML, PEN SQ-INSULIN SCH ×4 (07:00→21:08)
[2018-02-25 07:18] VITALS: BP 119/63
[2018-02-25] MEDS: MAGNESIUM CHLORIDE 64 MG TABLET.DR PO SCH ×2 (08:09→21:08)
[2018-02-25] MEDS: MULTIVITAMINS/MINERALS TABLET PO SCH (08:09)
[2018-02-25] MEDS: SPIRONOLACTONE 25 MG TABLET PO SCH (08:09)
[2018-02-25] MEDS: GABAPENTIN 300 MG CAPSULE PO SCH (08:09)
[2018-02-25] MEDS: FUROSEMIDE 40 MG TABLET PO SCH (08:09)
[2018-02-25] MEDS: TAMSULOSIN 0.4 MG CAP.ER.24H PO SCH (08:09)
[2018-02-25] MEDS: CHOLECALCIFEROL 1,000 UNIT TABLET PO SCH (08:09)
[2018-02-25] MEDS: GENTAMICIN OINT 0.1% 15GM TP SCH (08:10)
[2018-02-25] MEDS: FLUCONAZOLE 200 MG TABLET PO SCH (08:13)
[2018-02-25 12:00] VITALS: BP 133/60
[2018-02-25] MEDS: BISACODYL 10 MG SUPP PR PRN (16:42)
[2018-02-25 19:21] VITALS: BP 137/72
[2018-02-26 01:02] VITALS: BP 130/73
[2018-02-26] MEDS: HEPARIN 5,000 UNITS/ML, 1ML SQ SCH ×3 (02:45→17:09)
[2018-02-26] MEDS: CEFTAROLINE 600 MG in SODIUM CHLORIDE 0.9% 100 ML IV SCH ×3 (04:37→21:13)
[2018-02-26 04:46] LABS: MEAN CORPUSCULAR HEMOGLOBIN 28.5 pg (27.5-34.5); MEAN CORPUSCULAR HGB CONC 33.2 g/dL (33.2-36.2); MEAN CORPUSCULAR VOLUME 85.7 fL (81-97); MEAN PLATELET VOLUME 8.8 fL (7.4-10.4); PLATELET COUNT 123 x10^3/uL (130-400); RED BLOOD COUNT 2.83 x10^6/uL (4.38-5.82); RED CELL DISTRIBUTION WIDTH 16.5 % (9.4-14.8)
[2018-02-26 04:55] LABS: ANION GAP 4 mmol/L (5-15); CALCIUM 7.5 mg/dL (8.5-10.1); CHLORIDE 106 mmol/L (98-107); CREATININE 0.75 mg/dL (0.7-1.3)
[2018-02-26 05:06] LABS: BASOPHILS # (AUTO) 0.08 x10^3/uL (0-0.1); BASOPHILS % (AUTO) 2 % (0-1); EOSINOPHILS # (AUTO) 0.09 x10^3/uL (0-0.4); EOSINOPHILS % (AUTO) 3 % (1-7); LYMPHOCYTES # (AUTO) 1.37 x10^3/uL (1-3.4); LYMPHOCYTES % (AUTO) 37 % (22-44); MD SCAN; MONOCYTES # (AUTO) 0.37 x10^3/uL (0.2-0.8); MONOCYTES % (AUTO) 10 % (2-9); NEUTROPHILS # (AUTO) 1.74 x10^3/uL (1.8-6.8); NEUTROPHILS % (AUTO) 48 % (42-75)
[2018-02-26 06:45] VITALS: BP 116/50
[2018-02-26] MEDS: INSULIN LISPRO 100 UNITS/ML, PEN SQ-INSULIN SCH ×4 (07:00→21:14)
[2018-02-26] MEDS: MAGNESIUM CHLORIDE 64 MG TABLET.DR PO SCH ×2 (08:44→21:13)
[2018-02-26] MEDS: MULTIVITAMINS/MINERALS TABLET PO SCH (08:44)
[2018-02-26] MEDS: GABAPENTIN 300 MG CAPSULE PO SCH (08:45)
[2018-02-26] MEDS: TAMSULOSIN 0.4 MG CAP.ER.24H PO SCH (08:45)
[2018-02-26] MEDS: FLUCONAZOLE 200 MG TABLET PO SCH (08:45)
[2018-02-26] MEDS: SPIRONOLACTONE 25 MG TABLET PO SCH (08:45)
[2018-02-26] MEDS: FUROSEMIDE 40 MG TABLET PO SCH (08:46)
[2018-02-26] MEDS: CHOLECALCIFEROL 1,000 UNIT TABLET PO SCH (08:46)
[2018-02-26] MEDS: GENTAMICIN OINT 0.1% 15GM TP SCH (08:46)
[2018-02-26] MEDS: OXYcodone/APAP 10/325MG TABLET PO PRN ×2 (09:01→21:29)
[2018-02-26 13:35] VITALS: BP 114/46
[2018-02-26 23:33] VITALS: BP 119/38
[2018-02-27 03:00] VITALS: BP 128/57
[2018-02-27] MEDS: HEPARIN 5,000 UNITS/ML, 1ML SQ SCH ×3 (03:24→19:30)
[2018-02-27] MEDS ORDERED: CATHFLO-ALTEPLASE 2 MG/2 ML CATHFLUSH ONE (04:00)
[2018-02-27] MEDS: CEFTAROLINE 600 MG in SODIUM CHLORIDE 0.9% 100 ML IV SCH ×3 (05:23→22:12)
[2018-02-27 06:22] LABS: BASOPHILS # (AUTO) 0.02 x10^3/uL (0-0.1); BASOPHILS % (AUTO) 1 % (0-1); EOSINOPHILS # (AUTO) 0.17 x10^3/uL (0-0.4); EOSINOPHILS % (AUTO) 5 % (1-7); LYMPHOCYTES # (AUTO) 1.36 x10^3/uL (1-3.4); LYMPHOCYTES % (AUTO) 38 % (22-44); MD NO; MEAN CORPUSCULAR HEMOGLOBIN 28.1 pg (27.5-34.5); MEAN CORPUSCULAR HGB CONC 32.8 g/dL (33.2-36.2); MEAN CORPUSCULAR VOLUME 85.9 fL (81-97); MEAN PLATELET VOLUME 9.1 fL (7.4-10.4); MONOCYTES # (AUTO) 0.42 x10^3/uL (0.2-0.8); MONOCYTES % (AUTO) 12 % (2-9); NEUTROPHILS # (AUTO) 1.65 x10^3/uL (1.8-6.8); NEUTROPHILS % (AUTO) 46 % (42-75); PLATELET COUNT 120 x10^3/uL (130-400); RED BLOOD COUNT 2.86 x10^6/uL (4.38-5.82); RED CELL DISTRIBUTION WIDTH 16.5 % (9.4-14.8)
[2018-02-27 06:34] LABS: ANION GAP 6 mmol/L (5-15); CALCIUM 7.7 mg/dL (8.5-10.1); CHLORIDE 105 mmol/L (98-107); CREATININE 0.76 mg/dL (0.7-1.3)
[2018-02-27 06:42] VITALS: BP 128/53
[2018-02-27] MEDS: INSULIN LISPRO 100 UNITS/ML, PEN SQ-INSULIN SCH ×4 (07:00→22:12)
[2018-02-27] MEDS: TAMSULOSIN 0.4 MG CAP.ER.24H PO SCH (08:41)
[2018-02-27] MEDS: MULTIVITAMINS/MINERALS TABLET PO SCH (08:41)
[2018-02-27] MEDS: FLUCONAZOLE 200 MG TABLET PO SCH (08:41)
[2018-02-27] MEDS: CHOLECALCIFEROL 1,000 UNIT TABLET PO SCH (08:41)
[2018-02-27] MEDS: GABAPENTIN 300 MG CAPSULE PO SCH (08:42)
[2018-02-27] MEDS: FUROSEMIDE 40 MG TABLET PO SCH (08:42)
[2018-02-27] MEDS: OXYcodone/APAP 10/325MG TABLET PO PRN ×2 (08:42→22:12)
[2018-02-27] MEDS: GENTAMICIN OINT 0.1% 15GM TP SCH (08:43)
[2018-02-27] MEDS: SPIRONOLACTONE 25 MG TABLET PO SCH (11:21)
[2018-02-27 13:39] VITALS: BP 131/51
[2018-02-27 13:59] LABS: HIT RESULT POSITIVE (NEGATIVE)
[2018-02-27 19:09] VITALS: BP 114/43
[2018-02-28 01:10] VITALS: BP 116/44
[2018-02-28] MEDS: HEPARIN 5,000 UNITS/ML, 1ML SQ SCH (03:30)
[2018-02-28] MEDS: CEFTAROLINE 600 MG in SODIUM CHLORIDE 0.9% 100 ML IV SCH ×3 (05:35→22:16)
[2018-02-28 06:13] LABS: ANION GAP 5 mmol/L (5-15); CALCIUM 7.8 mg/dL (8.5-10.1); CHLORIDE 103 mmol/L (98-107); CREATININE 0.84 mg/dL (0.7-1.3)
[2018-02-28 06:16] LABS: BASOPHILS # (AUTO) 0.01 x10^3/uL (0-0.1); BASOPHILS % (AUTO) 0 % (0-1); EOSINOPHILS % (AUTO) 3 % (1-7); LYMPHOCYTES # (AUTO) 1.15 x10^3/uL (1-3.4); LYMPHOCYTES % (AUTO) 31 % (22-44); MD NO; MEAN CORPUSCULAR HEMOGLOBIN 27.4 pg (27.5-34.5); MEAN CORPUSCULAR HGB CONC 32.1 g/dL (33.2-36.2); MEAN CORPUSCULAR VOLUME 85.3 fL (81-97); MEAN PLATELET VOLUME 8.9 fL (7.4-10.4); MONOCYTES % (AUTO) 13 % (2-9); NEUTROPHILS % (AUTO) 53 % (42-75); PLATELET COUNT 117 x10^3/uL (130-400); RED BLOOD COUNT 2.93 x10^6/uL (4.38-5.82); RED CELL DISTRIBUTION WIDTH 16.5 % (9.4-14.8)
[2018-02-28 07:51] VITALS: BP 113/38
[2018-02-28] MEDS: SPIRONOLACTONE 25 MG TABLET PO SCH (09:12)
[2018-02-28] MEDS: MULTIVITAMINS/MINERALS TABLET PO SCH (09:12)
[2018-02-28] MEDS: FLUCONAZOLE 200 MG TABLET PO SCH (09:12)
[2018-02-28] MEDS: GABAPENTIN 300 MG CAPSULE PO SCH (09:12)
[2018-02-28] MEDS: OXYcodone/APAP 10/325MG TABLET PO PRN ×2 (09:12→17:45)
[2018-02-28] MEDS: FUROSEMIDE 40 MG TABLET PO SCH (09:12)
[2018-02-28] MEDS: TAMSULOSIN 0.4 MG CAP.ER.24H PO SCH (09:12)
[2018-02-28] MEDS: CHOLECALCIFEROL 1,000 UNIT TABLET PO SCH (09:12)
[2018-02-28] MEDS: INSULIN LISPRO 100 UNITS/ML, PEN SQ-INSULIN SCH ×4 (09:13→20:23)
[2018-02-28] MEDS: GENTAMICIN OINT 0.1% 15GM TP SCH (09:14)
[2018-02-28 14:27] VITALS: BP 116/52
[2018-02-28 18:55] VITALS: BP 111/63
[2018-03-01 02:00] VITALS: BP 104/65
[2018-03-01 05:31] LABS: BASOPHILS # (AUTO) 0.01 x10^3/uL (0-0.1); BASOPHILS % (AUTO) 0 % (0-1); EOSINOPHILS # (AUTO) 0.18 x10^3/uL (0-0.4); EOSINOPHILS % (AUTO) 5 % (1-7); LYMPHOCYTES # (AUTO) 1.19 x10^3/uL (1-3.4); LYMPHOCYTES % (AUTO) 35 % (22-44); MD NO; MEAN CORPUSCULAR HEMOGLOBIN 27.1 pg (27.5-34.5); MEAN CORPUSCULAR HGB CONC 32.1 g/dL (33.2-36.2); MEAN CORPUSCULAR VOLUME 84.5 fL (81-97); MONOCYTES # (AUTO) 0.49 x10^3/uL (0.2-0.8); MONOCYTES % (AUTO) 14 % (2-9); NEUTROPHILS # (AUTO) 1.55 x10^3/uL (1.8-6.8); NEUTROPHILS % (AUTO) 45 % (42-75); PLATELET COUNT 108 x10^3/uL (130-400); RED BLOOD COUNT 2.96 x10^6/uL (4.38-5.82); RED CELL DISTRIBUTION WIDTH 16.8 % (9.4-14.8)
[2018-03-01 05:41] LABS: ANION GAP 6 mmol/L (5-15); CALCIUM 7.9 mg/dL (8.5-10.1); CHLORIDE 104 mmol/L (98-107); CREATININE 0.73 mg/dL (0.7-1.3)
[2018-03-01] MEDS: CEFTAROLINE 600 MG in SODIUM CHLORIDE 0.9% 100 ML IV SCH ×3 (05:55→22:21)
[2018-03-01] MEDS: INSULIN LISPRO 100 UNITS/ML, PEN SQ-INSULIN SCH ×4 (07:00→21:08)
[2018-03-01 08:00] VITALS: BP 107/65
[2018-03-01] MEDS: TAMSULOSIN 0.4 MG CAP.ER.24H PO SCH (08:21)
[2018-03-01] MEDS: CHOLECALCIFEROL 1,000 UNIT TABLET PO SCH (08:21)
[2018-03-01] MEDS: MULTIVITAMINS/MINERALS TABLET PO SCH (08:21)
[2018-03-01] MEDS: SPIRONOLACTONE 25 MG TABLET PO SCH (08:21)
[2018-03-01] MEDS: FUROSEMIDE 40 MG TABLET PO SCH (08:21)
[2018-03-01] MEDS: FLUCONAZOLE 200 MG TABLET PO SCH (08:21)
[2018-03-01] MEDS: OXYcodone/APAP 10/325MG TABLET PO PRN ×2 (08:22→17:57)
[2018-03-01] MEDS: GABAPENTIN 300 MG CAPSULE PO SCH (08:22)
[2018-03-01] MEDS: FONDAPARINUX 2.5 MG/0.5 ML SQ SCH (08:22)
[2018-03-01] MEDS: GENTAMICIN OINT 0.1% 15GM TP SCH (08:22)
[2018-03-01 14:00] VITALS: BP 110/70
[2018-03-01 20:30] VITALS: BP 122/66
[2018-03-02 03:59] VITALS: BP 106/61
[2018-03-02 04:31] LABS: BASOPHILS # (AUTO) 0.04 x10^3/uL (0-0.1); BASOPHILS % (AUTO) 1 % (0-1); EOSINOPHILS # (AUTO) 0.17 x10^3/uL (0-0.4); EOSINOPHILS % (AUTO) 5 % (1-7); LYMPHOCYTES # (AUTO) 0.92 x10^3/uL (1-3.4); LYMPHOCYTES % (AUTO) 25 % (22-44); MD NO; MEAN CORPUSCULAR HEMOGLOBIN 27.5 pg (27.5-34.5); MEAN CORPUSCULAR HGB CONC 32.6 g/dL (33.2-36.2); MEAN CORPUSCULAR VOLUME 84.3 fL (81-97); MEAN PLATELET VOLUME 9.3 fL (7.4-10.4); MONOCYTES # (AUTO) 0.57 x10^3/uL (0.2-0.8); MONOCYTES % (AUTO) 16 % (2-9); NEUTROPHILS # (AUTO) 1.96 x10^3/uL (1.8-6.8); NEUTROPHILS % (AUTO) 53 % (42-75); PLATELET COUNT 108 x10^3/uL (130-400); RED BLOOD COUNT 2.93 x10^6/uL (4.38-5.82); RED CELL DISTRIBUTION WIDTH 16.8 % (9.4-14.8)
[2018-03-02 04:36] LABS: ANION GAP 6 mmol/L (5-15); CALCIUM 7.6 mg/dL (8.5-10.1); CHLORIDE 102 mmol/L (98-107); CREATININE 0.82 mg/dL (0.7-1.3)
[2018-03-02] MEDS: CEFTAROLINE 600 MG in SODIUM CHLORIDE 0.9% 100 ML IV SCH ×3 (06:04→22:19)
[2018-03-02 07:53] VITALS: BP 101/67
[2018-03-02] MEDS: INSULIN LISPRO 100 UNITS/ML, PEN SQ-INSULIN SCH ×4 (08:04→20:29)
[2018-03-02] MEDS: GABAPENTIN 300 MG CAPSULE PO SCH (08:04)
[2018-03-02] MEDS: OXYcodone/APAP 10/325MG TABLET PO PRN ×2 (08:05→20:29)
[2018-03-02] MEDS: FUROSEMIDE 40 MG TABLET PO SCH (08:05)
[2018-03-02] MEDS: CHOLECALCIFEROL 1,000 UNIT TABLET PO SCH (08:05)
[2018-03-02] MEDS: MULTIVITAMINS/MINERALS TABLET PO SCH (08:05)
[2018-03-02] MEDS: FONDAPARINUX 2.5 MG/0.5 ML SQ SCH (08:05)
[2018-03-02] MEDS: TAMSULOSIN 0.4 MG CAP.ER.24H PO SCH (08:05)
[2018-03-02] MEDS: SPIRONOLACTONE 25 MG TABLET PO SCH (08:05)
[2018-03-02] MEDS: FLUCONAZOLE 200 MG TABLET PO SCH (08:06)
[2018-03-02] MEDS: GENTAMICIN OINT 0.1% 15GM TP SCH (08:06)
[2018-03-02 13:59] VITALS: BP 119/66
[2018-03-02 20:33] VITALS: BP 100/63
[2018-03-03 03:00] VITALS: BP 112/62
[2018-03-03] MEDS: CEFTAROLINE 600 MG in SODIUM CHLORIDE 0.9% 100 ML IV SCH ×3 (05:08→22:27)
[2018-03-03 06:52] VITALS: BP 112/69
[2018-03-03] MEDS: TAMSULOSIN 0.4 MG CAP.ER.24H PO SCH (08:25)
[2018-03-03] MEDS: FLUCONAZOLE 200 MG TABLET PO SCH (08:25)
[2018-03-03] MEDS: MULTIVITAMINS/MINERALS TABLET PO SCH (08:25)
[2018-03-03] MEDS: FONDAPARINUX 2.5 MG/0.5 ML SQ SCH (08:25)
[2018-03-03] MEDS: SPIRONOLACTONE 25 MG TABLET PO SCH (08:25)
[2018-03-03] MEDS: GABAPENTIN 300 MG CAPSULE PO SCH (08:25)
[2018-03-03] MEDS: CHOLECALCIFEROL 1,000 UNIT TABLET PO SCH (08:25)
[2018-03-03] MEDS: OXYcodone/APAP 10/325MG TABLET PO PRN ×2 (08:25→21:08)
[2018-03-03] MEDS: FUROSEMIDE 40 MG TABLET PO SCH (08:26)
[2018-03-03] MEDS: GENTAMICIN OINT 0.1% 15GM TP SCH (08:26)
[2018-03-03] MEDS: INSULIN LISPRO 100 UNITS/ML, PEN SQ-INSULIN SCH ×4 (09:02→20:20)
[2018-03-03 13:13] VITALS: BP 125/75
[2018-03-03 19:44] VITALS: BP 113/69
[2018-03-04 00:16] VITALS: BP 111/68
[2018-03-04 04:57] LABS: HCT (SEDRATE) 25.5 % (39.2-51.8)
[2018-03-04 04:58] LABS: BASOPHILS # (AUTO) 0.03 x10^3/uL (0-0.1); BASOPHILS % (AUTO) 1 % (0-1); EOSINOPHILS # (AUTO) 0.23 x10^3/uL (0-0.4); EOSINOPHILS % (AUTO) 5 % (1-7); LYMPHOCYTES % (AUTO) 29 % (22-44); MD NO; MEAN CORPUSCULAR HEMOGLOBIN 26.7 pg (27.5-34.5); MEAN CORPUSCULAR VOLUME 83.6 fL (81-97); MEAN PLATELET VOLUME 9.4 fL (7.4-10.4); MONOCYTES # (AUTO) 0.58 x10^3/uL (0.2-0.8); MONOCYTES % (AUTO) 14 % (2-9); NEUTROPHILS # (AUTO) 2.11 x10^3/uL (1.8-6.8); NEUTROPHILS % (AUTO) 51 % (42-75); PLATELET COUNT 100 x10^3/uL (130-400)
[2018-03-04 05:12] LABS: ALBUMIN 1.8 g/dL (3.4-5.0); ANION GAP 7 mmol/L (5-15); CALCIUM 7.9 mg/dL (8.5-10.1); CHLORIDE 101 mmol/L (98-107)
[2018-03-04 05:24] LABS: ALANINE AMINOTRANSFERASE 21 U/L (12-78); ALKALINE PHOSPHATASE 414 U/L (45-117); BILIRUBIN,TOTAL 0.9 mg/dL (0.2-1.0); CREATININE 0.83 mg/dL (0.7-1.3); TOTAL PROTEIN 6.7 g/dL (6.4-8.2)
[2018-03-04] MEDS: CEFTAROLINE 600 MG in SODIUM CHLORIDE 0.9% 100 ML IV SCH ×3 (06:15→21:56)
[2018-03-04] MEDS: TAMSULOSIN 0.4 MG CAP.ER.24H PO SCH (07:58)
[2018-03-04] MEDS: SPIRONOLACTONE 25 MG TABLET PO SCH (07:58)
[2018-03-04] MEDS: FUROSEMIDE 40 MG TABLET PO SCH (07:58)
[2018-03-04] MEDS: MULTIVITAMINS/MINERALS TABLET PO SCH (07:59)
[2018-03-04] MEDS: FLUCONAZOLE 200 MG TABLET PO SCH (07:59)
[2018-03-04] MEDS: GABAPENTIN 300 MG CAPSULE PO SCH (07:59)
[2018-03-04] MEDS: INSULIN LISPRO 100 UNITS/ML, PEN SQ-INSULIN SCH ×4 (08:00→20:49)
[2018-03-04] MEDS: FONDAPARINUX 2.5 MG/0.5 ML SQ SCH (08:00)
[2018-03-04] MEDS: GENTAMICIN OINT 0.1% 15GM TP SCH (08:01)
[2018-03-04] MEDS: CHOLECALCIFEROL 1,000 UNIT TABLET PO SCH (08:03)
[2018-03-04 08:06] VITALS: BP 126/75
[2018-03-04 11:59] VITALS: BP 119/77
[2018-03-04] MEDS: OXYcodone/APAP 10/325MG TABLET PO PRN (13:30)
[2018-03-04] MEDS: NYSTATIN TOPICAL POWDER 15GM TP SCH ×2 (14:02→20:49)
[2018-03-04 18:45] VITALS: BP 119/65
[2018-03-05 02:05] VITALS: BP 104/66
[2018-03-05] MEDS: CEFTAROLINE 600 MG in SODIUM CHLORIDE 0.9% 100 ML IV SCH ×3 (06:08→21:59)
[2018-03-05 07:33] VITALS: BP 127/66
[2018-03-05] MEDS: CHOLECALCIFEROL 1,000 UNIT TABLET PO SCH (08:12)
[2018-03-05] MEDS: INSULIN LISPRO 100 UNITS/ML, PEN SQ-INSULIN SCH ×4 (08:12→20:12)
[2018-03-05] MEDS: MULTIVITAMINS/MINERALS TABLET PO SCH (08:12)
[2018-03-05] MEDS: SPIRONOLACTONE 25 MG TABLET PO SCH (08:13)
[2018-03-05] MEDS: GABAPENTIN 300 MG CAPSULE PO SCH (08:13)
[2018-03-05] MEDS: TAMSULOSIN 0.4 MG CAP.ER.24H PO SCH (08:13)
[2018-03-05] MEDS: FUROSEMIDE 40 MG TABLET PO SCH (08:13)
[2018-03-05] MEDS: FONDAPARINUX 2.5 MG/0.5 ML SQ SCH (08:13)
[2018-03-05] MEDS: GENTAMICIN OINT 0.1% 15GM TP SCH (08:14)
[2018-03-05] MEDS: NYSTATIN TOPICAL POWDER 15GM TP SCH ×2 (08:15→20:13)
[2018-03-05] MEDS: BISACODYL 10 MG SUPP PR PRN (11:42)
[2018-03-05] MEDS: OXYcodone/APAP 10/325MG TABLET PO PRN (12:00)
[2018-03-05 13:19] VITALS: BP 107/70
[2018-03-05 18:55] VITALS: BP 125/74
[2018-03-06 01:20] VITALS: BP 105/69
[2018-03-06] MEDS: CEFTAROLINE 600 MG in SODIUM CHLORIDE 0.9% 100 ML IV SCH ×3 (05:53→21:53)
[2018-03-06 07:32] VITALS: BP 130/69
[2018-03-06] MEDS: OXYcodone/APAP 10/325MG TABLET PO PRN ×2 (07:32→22:49)
[2018-03-06] MEDS: INSULIN LISPRO 100 UNITS/ML, PEN SQ-INSULIN SCH ×4 (07:42→20:08)
[2018-03-06] MEDS: GENTAMICIN OINT 0.1% 15GM TP SCH (09:58)
[2018-03-06] MEDS: SPIRONOLACTONE 25 MG TABLET PO SCH (09:58)
[2018-03-06] MEDS: NYSTATIN TOPICAL POWDER 15GM TP SCH ×2 (09:58→20:15)
[2018-03-06] MEDS: GLIMEPIRIDE 1 MG TABLET PO SCH (09:58)
[2018-03-06] MEDS: TAMSULOSIN 0.4 MG CAP.ER.24H PO SCH (09:58)
[2018-03-06] MEDS: CHOLECALCIFEROL 1,000 UNIT TABLET PO SCH (09:59)
[2018-03-06] MEDS: FUROSEMIDE 40 MG TABLET PO SCH (09:59)
[2018-03-06] MEDS: FONDAPARINUX 2.5 MG/0.5 ML SQ SCH (09:59)
[2018-03-06] MEDS: MULTIVITAMINS/MINERALS TABLET PO SCH (09:59)
[2018-03-06] MEDS: GABAPENTIN 300 MG CAPSULE PO SCH (09:59)
[2018-03-06 14:00] VITALS: BP 138/83
[2018-03-06 19:04] VITALS: BP 130/77
[2018-03-07 01:12] VITALS: BP 107/51
[2018-03-07] MEDS: CEFTAROLINE 600 MG in SODIUM CHLORIDE 0.9% 100 ML IV SCH ×3 (05:23→22:07)
[2018-03-07] MEDS: INSULIN LISPRO 100 UNITS/ML, PEN SQ-INSULIN SCH ×4 (07:00→21:28)
[2018-03-07 07:41] VITALS: BP 109/72
[2018-03-07] MEDS: SPIRONOLACTONE 25 MG TABLET PO SCH (08:43)
[2018-03-07] MEDS: FUROSEMIDE 40 MG TABLET PO SCH (08:43)
[2018-03-07] MEDS: TAMSULOSIN 0.4 MG CAP.ER.24H PO SCH (08:43)
[2018-03-07] MEDS: GLIMEPIRIDE 1 MG TABLET PO SCH (08:43)
[2018-03-07] MEDS: FONDAPARINUX 2.5 MG/0.5 ML SQ SCH (08:44)
[2018-03-07] MEDS: GABAPENTIN 300 MG CAPSULE PO SCH (08:44)
[2018-03-07] MEDS: CHOLECALCIFEROL 1,000 UNIT TABLET PO SCH (08:44)
[2018-03-07] MEDS: NYSTATIN TOPICAL POWDER 15GM TP SCH ×2 (08:44→21:29)
[2018-03-07] MEDS: MULTIVITAMINS/MINERALS TABLET PO SCH (08:44)
[2018-03-07 13:11] VITALS: BP 120/79
[2018-03-07 18:44] VITALS: BP 133/67
[2018-03-07] MEDS: OXYcodone/APAP 5/325MG TABLET PO PRN (21:07)
[2018-03-08 00:18] VITALS: BP 123/78
[2018-03-08] MEDS: OXYcodone/APAP 5/325MG TABLET PO PRN ×2 (05:06→20:52)
[2018-03-08] MEDS: CEFTAROLINE 600 MG in SODIUM CHLORIDE 0.9% 100 ML IV SCH ×3 (05:57→22:08)
[2018-03-08 06:49] VITALS: BP 101/60
[2018-03-08] MEDS: SPIRONOLACTONE 25 MG TABLET PO SCH (08:01)
[2018-03-08] MEDS: INSULIN LISPRO 100 UNITS/ML, PEN SQ-INSULIN SCH ×4 (08:01→20:49)
[2018-03-08] MEDS: GLIMEPIRIDE 1 MG TABLET PO SCH (08:01)
[2018-03-08] MEDS: TAMSULOSIN 0.4 MG CAP.ER.24H PO SCH (08:01)
[2018-03-08] MEDS: GABAPENTIN 300 MG CAPSULE PO SCH (08:02)
[2018-03-08] MEDS: FUROSEMIDE 40 MG TABLET PO SCH (08:02)
[2018-03-08] MEDS: FONDAPARINUX 2.5 MG/0.5 ML SQ SCH (08:02)
[2018-03-08] MEDS: MULTIVITAMINS/MINERALS TABLET PO SCH (08:05)
[2018-03-08] MEDS: NYSTATIN TOPICAL POWDER 15GM TP SCH ×2 (08:06→20:41)
[2018-03-08] MEDS: CHOLECALCIFEROL 1,000 UNIT TABLET PO SCH (08:06)
[2018-03-08 13:37] VITALS: BP 128/81
[2018-03-08 18:10] VITALS: BP 136/83
[2018-03-08 20:17] VITALS: BP 92/61
[2018-03-09 00:28] VITALS: BP 120/76
[2018-03-09] MEDS: OXYcodone/APAP 5/325MG TABLET PO PRN ×2 (02:53→19:07)
[2018-03-09] MEDS: CEFTAROLINE 600 MG in SODIUM CHLORIDE 0.9% 100 ML IV SCH ×3 (05:49→22:04)
[2018-03-09] MEDS: INSULIN LISPRO 100 UNITS/ML, PEN SQ-INSULIN SCH ×4 (07:00→21:08)
[2018-03-09 07:17] VITALS: BP 149/72
[2018-03-09] MEDS: SPIRONOLACTONE 25 MG TABLET PO SCH ×2 (09:00→10:59)
[2018-03-09] MEDS: FUROSEMIDE 40 MG TABLET PO SCH (10:58)
[2018-03-09] MEDS: FONDAPARINUX 2.5 MG/0.5 ML SQ SCH (10:58)
[2018-03-09] MEDS: MULTIVITAMINS/MINERALS TABLET PO SCH (10:58)
[2018-03-09] MEDS: GLIMEPIRIDE 1 MG TABLET PO SCH (10:58)
[2018-03-09] MEDS: TAMSULOSIN 0.4 MG CAP.ER.24H PO SCH (10:59)
[2018-03-09] MEDS: GABAPENTIN 300 MG CAPSULE PO SCH (10:59)
[2018-03-09] MEDS: CHOLECALCIFEROL 1,000 UNIT TABLET PO SCH (11:00)
[2018-03-09] MEDS: NYSTATIN TOPICAL POWDER 15GM TP SCH ×2 (11:03→21:10)
[2018-03-09 15:33] VITALS: BP 96/68
[2018-03-09 18:43] VITALS: BP 130/81
[2018-03-10 01:07] VITALS: BP 116/70
[2018-03-10] MEDS: OXYcodone/APAP 5/325MG TABLET PO PRN ×3 (03:01→19:33)
[2018-03-10] MEDS: CEFTAROLINE 600 MG in SODIUM CHLORIDE 0.9% 100 ML IV SCH ×3 (05:52→22:42)
[2018-03-10] MEDS: INSULIN LISPRO 100 UNITS/ML, PEN SQ-INSULIN SCH ×4 (07:00→19:33)
[2018-03-10 07:42] VITALS: BP 122/67
[2018-03-10] MEDS: NYSTATIN TOPICAL POWDER 15GM TP SCH ×2 (08:13→19:33)
[2018-03-10] MEDS: FONDAPARINUX 2.5 MG/0.5 ML SQ SCH (08:14)
[2018-03-10] MEDS: FUROSEMIDE 40 MG TABLET PO SCH (08:14)
[2018-03-10] MEDS: MULTIVITAMINS/MINERALS TABLET PO SCH (08:14)
[2018-03-10] MEDS: GLIMEPIRIDE 1 MG TABLET PO SCH (08:14)
[2018-03-10] MEDS: GABAPENTIN 300 MG CAPSULE PO SCH (08:14)
[2018-03-10] MEDS: TAMSULOSIN 0.4 MG CAP.ER.24H PO SCH (08:14)
[2018-03-10] MEDS: CHOLECALCIFEROL 1,000 UNIT TABLET PO SCH (08:14)
[2018-03-10] MEDS: SPIRONOLACTONE 25 MG TABLET PO SCH (08:14)
[2018-03-10 14:38] VITALS: BP 135/72
[2018-03-10 18:52] VITALS: BP 113/82
[2018-03-11 01:32] VITALS: BP 123/63
[2018-03-11] MEDS: CEFTAROLINE 600 MG in SODIUM CHLORIDE 0.9% 100 ML IV SCH (05:09)
[2018-03-11 05:38] LABS: MEAN CORPUSCULAR HEMOGLOBIN 26.9 pg (27.5-34.5); MEAN CORPUSCULAR HGB CONC 32.7 g/dL (33.2-36.2); MEAN CORPUSCULAR VOLUME 82.2 fL (81-97); RED BLOOD COUNT 3.34 x10^6/uL (4.38-5.82); RED CELL DISTRIBUTION WIDTH 16.8 % (9.4-14.8)
[2018-03-11 05:41] LABS: CHLORIDE 106 mmol/L (98-107)
[2018-03-11 05:42] LABS: HCT (SEDRATE) 27.4 % (39.2-51.8)
[2018-03-11 05:46] LABS: ALANINE AMINOTRANSFERASE 28 U/L (12-78); ALBUMIN 1.9 g/dL (3.4-5.0); ALKALINE PHOSPHATASE 481 U/L (45-117); ANION GAP 6 mmol/L (5-15); BILIRUBIN,TOTAL 0.9 mg/dL (0.2-1.0); C-REACTIVE PROTEIN, QUANT 0.86 mg/dL (0.02-0.49); CALCIUM 7.7 mg/dL (8.5-10.1); CREATININE 0.83 mg/dL (0.7-1.3)
[2018-03-11 06:35] LABS: BASOPHILS # (AUTO) 0.04 x10^3/uL (0-0.1); BASOPHILS % (AUTO) 1 % (0-1); EOSINOPHILS # (AUTO) 0.16 x10^3/uL (0-0.4); EOSINOPHILS % (AUTO) 4 % (1-7); LYMPHOCYTES # (AUTO) 1.16 x10^3/uL (1-3.4); LYMPHOCYTES % (AUTO) 32 % (22-44); MD NO; MEAN PLATELET VOLUME 9.7 fL (7.4-10.4); MONOCYTES # (AUTO) 0.38 x10^3/uL (0.2-0.8); MONOCYTES % (AUTO) 10 % (2-9); NEUTROPHILS # (AUTO) 1.93 x10^3/uL (1.8-6.8); NEUTROPHILS % (AUTO) 53 % (42-75); PLATELET COUNT 76 x10^3/uL (130-400)
[2018-03-11 06:58] VITALS: BP 125/57
[2018-03-11] MEDS: INSULIN LISPRO 100 UNITS/ML, PEN SQ-INSULIN SCH (07:00)
[2018-03-11] MEDS: MULTIVITAMINS/MINERALS TABLET PO SCH (07:19)
[2018-03-11] MEDS: NYSTATIN TOPICAL POWDER 15GM TP SCH (07:19)
[2018-03-11] MEDS: FUROSEMIDE 40 MG TABLET PO SCH (07:20)
[2018-03-11] MEDS: FONDAPARINUX 2.5 MG/0.5 ML SQ SCH (07:20)
[2018-03-11] MEDS: CHOLECALCIFEROL 1,000 UNIT TABLET PO SCH (07:20)
[2018-03-11] MEDS: GLIMEPIRIDE 1 MG TABLET PO SCH (07:20)
[2018-03-11] MEDS: SPIRONOLACTONE 25 MG TABLET PO SCH (07:20)
[2018-03-11] MEDS: GABAPENTIN 300 MG CAPSULE PO SCH (07:20)
[2018-03-11] MEDS: TAMSULOSIN 0.4 MG CAP.ER.24H PO SCH (07:21)
[2018-03-11] MEDS: OXYcodone/APAP 5/325MG TABLET PO PRN (07:55)
== END 2018-03-11 08:35 | disposition left against medical advice (07) | DRG 495 ==
LOC: ED 18:09 → EDIP 18:10 → ED 18:35 → 3NE 19:56
PROVIDERS: ADMIT Family Medicine; ATTEND Hospitalist
PROC: B5181ZA Fluoroscopy of Superior Vena Cava using Low Osmolar Contrast, Guidance (ICD-10-PCS; principal; 2018-02-14)
PROC: 0RPJ0JZ Removal of Synthetic Substitute from Right Shoulder Joint, Open Approach (ICD-10-PCS; 2018-02-14)
PROC: 0RCJ0ZZ Extirpation of Matter from Right Shoulder Joint, Open Approach (ICD-10-PCS; 2018-02-14)
PROC: 0RHJ08Z Insertion of Spacer into Right Shoulder Joint, Open Approach (ICD-10-PCS; 2018-02-14)
PROC: 02HV33Z Insertion of Infusion Device into Superior Vena Cava, Percutaneous Approach (ICD-10-PCS; 2018-02-14)
PROC: B548ZZA Ultrasonography of Superior Vena Cava, Guidance (ICD-10-PCS; 2018-02-14)
DX: T84.59XA Infection and inflammatory reaction due to other internal joint prosthesis, initial encounter (principal); E43 Unspecified severe protein-calorie malnutrition; A41.02 Sepsis due to Methicillin resistant Staphylococcus aureus; E87.1 Hypo-osmolality and hyponatremia; L03.113 Cellulitis of right upper limb; L97.329 Non-pressure chronic ulcer of left ankle with unspecified severity; M86.8X1 Other osteomyelitis, shoulder; N39.0 Urinary tract infection, site not specified; L76.32 Postprocedural hematoma of skin and subcutaneous tissue following other procedure; Z68.41 Body mass index [BMI] 40.0-44.9, adult; E11.621 Type 2 diabetes mellitus with foot ulcer; L97.519 Non-pressure chronic ulcer of other part of right foot with unspecified severity; Z87.891 Personal history of nicotine dependence; Y83.8 Other surgical procedures as the cause of abnormal reaction of the patient, or of later complication, without mention of misadventure at the time of the procedure; B37.2 Candidiasis of skin and nail; D64.9 Anemia, unspecified; D69.6 Thrombocytopenia, unspecified; D73.1 Hypersplenism; B96.89 Other specified bacterial agents as the cause of diseases classified elsewhere; F10.10 Alcohol abuse, uncomplicated; D70.9 Neutropenia, unspecified; E11.42 Type 2 diabetes mellitus with diabetic polyneuropathy; E66.01 Morbid (severe) obesity due to excess calories; E78.5 Hyperlipidemia, unspecified; I10 Essential (primary) hypertension; I87.8 Other specified disorders of veins; N40.0 Benign prostatic hyperplasia without lower urinary tract symptoms; Z79.4 Long term (current) use of insulin; Y92.89 Other specified places as the place of occurrence of the external cause; Z91.19 Patient's noncompliance with other medical treatment and regimen
CPT/HCPCS: 36415; 73030; 73060; 77001; 87106; 99285; J3260; 36569; 71045; 76937; 80048; 80053; 80202; 81001; 82040; 82542; 82550; 82962; 83036; 83605; 83735; 83880; 84100; 84484; 85014; 85025; 85651; 86022; 86140; 86141; 87040; 87070; 87075; 87077; 87081; 87086; 87176; 87186; 87205; 93005; 96365; 96375; C1713; G0378; J0295; J0690; J0712; J0878; J1644; J2250; J2543; J2704; J2997; J3010; J3370; J3475; C1751; J0330; J1652; J1815; J1940; J2270; J7030; J7040

== ENCOUNTER 2018-03-24 16:30 | Inpatient (IN) | payer MEDICAID ==
[~2018-03-24] VITALS: Ht 165.1 cm; Wt 140.4 kg
[~2018-03-24 16:30] MED LIST: CHOL100012 PO; FURO20TA3 PO; GABA300C10 PO; GLIM2TAB2 PO; SPIR25TA5 PO; TAMS0.4C2 PO
[2018-03-24] MEDS ORDERED: ACETAMINOPHEN 500 MG TABLET PO ONE (17:00)
[2018-03-24] MEDS ORDERED: SODIUM CHLORIDE 0.9% 1,000ML IVBOLUS ONE (17:00)
[2018-03-24] MEDS ORDERED: SODIUM CHLORIDE FLUSH 10ML SYR IVF ONE (17:00)
[2018-03-24] MEDS ORDERED: ACETAMINOPHEN 500 MG TABLET ONE (17:19)
[2018-03-24 17:26] LABS: BASOPHILS # (AUTO) 0.01 x10^3/uL (0-0.1); BASOPHILS % (AUTO) 0 % (0-1); EOSINOPHILS % (AUTO) 0 % (1-7); LYMPHOCYTES # (AUTO) 0.51 x10^3/uL (1-3.4); LYMPHOCYTES % (AUTO) 5 % (22-44); MD NO; MEAN CORPUSCULAR HEMOGLOBIN 26.2 pg (27.5-34.5); MEAN CORPUSCULAR HGB CONC 33.1 g/dL (33.2-36.2); MEAN CORPUSCULAR VOLUME 79.3 fL (81-97); MEAN PLATELET VOLUME 8.9 fL (7.4-10.4); MONOCYTES # (AUTO) 0.62 x10^3/uL (0.2-0.8); MONOCYTES % (AUTO) 7 % (2-9); NEUTROPHILS # (AUTO) 8.44 x10^3/uL (1.8-6.8); NEUTROPHILS % (AUTO) 88 % (42-75); PLATELET COUNT 111 x10^3/uL (130-400); RED BLOOD COUNT 3.35 x10^6/uL (4.38-5.82)
[2018-03-24 17:37] LABS: INTERNATIONAL NORMALIZED RATIO 1.55 (0.93-1.1); PROTHROMBIN TIME 15.8 Seconds (9.6-11.5)
[2018-03-24 17:39] LABS: ALBUMIN 2.1 g/dL (3.4-5.0); ANION GAP 9 mmol/L (5-15); CALCIUM 7.1 mg/dL (8.5-10.1); CHLORIDE 94 mmol/L (98-107)
[2018-03-24 17:43] LABS: ALANINE AMINOTRANSFERASE 27 U/L (12-78); ALKALINE PHOSPHATASE 431 U/L (45-117); CREATININE 0.86 mg/dL (0.7-1.3); TOTAL PROTEIN 7.1 g/dL (6.4-8.2)
[2018-03-24] MEDS ORDERED: POTASSIUM CHLORIDE 40 MEQ in SODIUM CHLORIDE 0.9% 500 ML IV ONE (18:00)
[2018-03-24] MEDS ORDERED: CEFTAROLINE 600 MG in SODIUM CHLORIDE 0.9% 100 ML IV ONE (18:00)
[2018-03-24] MEDS ORDERED: OMNIPAQUE 350 MG/ML, 100ML BOTTLE ONE (18:19)
[2018-03-24] MEDS ORDERED: BISACODYL 10 MG SUPP PR PRN (18:30)
[2018-03-24] MEDS ORDERED: CEFTAROLINE 600 MG in SODIUM CHLORIDE 0.9% 100 ML IV SCH (18:30)
[2018-03-24] MEDS ORDERED: ONDANSETRON ODT 4 MG PO PRN (18:30)
[2018-03-24 20:00] VITALS: BP 118/73
[2018-03-24] MEDS: INSULIN LISPRO 100 UNITS/ML, PEN SQ-INSULIN SCH (21:00)
[2018-03-24] MEDS: FUROSEMIDE 20 MG TABLET PO SCH (21:00)
[2018-03-24] MEDS: HEPARIN 5,000 UNITS/ML, 1ML SQ SCH (21:22)
[2018-03-24] MEDS ORDERED: MAGNESIUM SULFATE 4 GM in SODIUM CHLORIDE 0.9% 100 ML IV ONE (21:30)
[2018-03-24] MEDS ORDERED: MAGNESIUM SULFATE PMX 4GM/100M 100 ML IVPB ONE (22:00)
[2018-03-24] MEDS: POTASSIUM CHLORIDE 30 MEQ in SODIUM CHLORIDE 0.9% 1,000 ML IV SCH (22:09)
[2018-03-24] MEDS: KETOROLAC 30 MG/1 ML IV PRN (23:35)
[2018-03-25 02:00] VITALS: BP 125/90
[2018-03-25] MEDS: INSULIN LISPRO 100 UNITS/ML, PEN SQ-INSULIN SCH ×4 (03:39→20:19)
[2018-03-25 04:01] LABS: MICROSCOPIC AUTO
[2018-03-25 04:05] LABS: CULTURE INDICATED? YES
[2018-03-25 04:11] LABS: AMPHETAMINE SCREEN, URINE Negative (Negative); BARBITURATE SCREEN, URINE Negative (Negative); BENZODIAZEPINE SCREEN, URINE Negative (Negative); CANNABINOID SCREEN, URINE Negative (Negative); COCAINE SCREEN, URINE Negative (Negative); METHADONE SCREEN, URINE Positive (Negative); OPIATE SCREEN, URINE Negative (Negative)
[2018-03-25] MEDS: ACETAMINOPHEN 325 MG TABLET PO PRN ×2 (04:40→12:50)
[2018-03-25] MEDS: HEPARIN 5,000 UNITS/ML, 1ML SQ SCH ×3 (06:08→20:17)
[2018-03-25] MEDS: CEFTAROLINE 600 MG in SODIUM CHLORIDE 0.9% 100 ML IV SCH ×2 (06:08→18:31)
[2018-03-25 06:11] LABS: CHLORIDE 99 mmol/L (98-107)
[2018-03-25 06:19] LABS: MEAN CORPUSCULAR HEMOGLOBIN 25.9 pg (27.5-34.5); MEAN CORPUSCULAR HGB CONC 32.4 g/dL (33.2-36.2); MEAN CORPUSCULAR VOLUME 80.1 fL (81-97); MEAN PLATELET VOLUME 8.7 fL (7.4-10.4); PLATELET COUNT 99 x10^3/uL (130-400); RED BLOOD COUNT 3.49 x10^6/uL (4.38-5.82); RED CELL DISTRIBUTION WIDTH 18.6 % (9.4-14.8)
[2018-03-25 06:20] LABS: ALANINE AMINOTRANSFERASE 22 U/L (12-78); ALBUMIN 1.9 g/dL (3.4-5.0); ALKALINE PHOSPHATASE 373 U/L (45-117); ANION GAP 7 mmol/L (5-15); CALCIUM 7.1 mg/dL (8.5-10.1); CREATININE 0.69 mg/dL (0.7-1.3); TOTAL PROTEIN 6.4 g/dL (6.4-8.2)
[2018-03-25 06:48] LABS: BASOPHILS # (AUTO) 0.03 x10^3/uL (0-0.1); BASOPHILS % (AUTO) 1 % (0-1); EOSINOPHILS # (AUTO) 0.03 x10^3/uL (0-0.4); EOSINOPHILS % (AUTO) 1 % (1-7); LYMPHOCYTES # (AUTO) 0.61 x10^3/uL (1-3.4); LYMPHOCYTES % (AUTO) 9 % (22-44); MD SCAN; MONOCYTES # (AUTO) 0.87 x10^3/uL (0.2-0.8); MONOCYTES % (AUTO) 12 % (2-9); NEUTROPHILS # (AUTO) 5.65 x10^3/uL (1.8-6.8); NEUTROPHILS % (AUTO) 78 % (42-75)
[2018-03-25 06:58] VITALS: BP 105/61
[2018-03-25] MEDS: CHOLECALCIFEROL 1,000 UNIT TABLET PO SCH (08:57)
[2018-03-25] MEDS: FUROSEMIDE 20 MG TABLET PO SCH ×2 (08:57→20:17)
[2018-03-25] MEDS: POTASSIUM CHLORIDE 20 MEQ TAB.ER.PRT PO SCH ×2 (08:57→17:57)
[2018-03-25] MEDS: TAMSULOSIN 0.4 MG CAP.ER.24H PO SCH (08:57)
[2018-03-25] MEDS: GABAPENTIN 300 MG CAPSULE PO SCH (08:57)
[2018-03-25] MEDS: SPIRONOLACTONE 25 MG TABLET PO SCH (08:58)
[2018-03-25] MEDS: POTASSIUM CHLORIDE 30 MEQ in SODIUM CHLORIDE 0.9% 1,000 ML IV SCH ×2 (11:08→22:38)
[2018-03-25 12:20] VITALS: BP 101/68
[2018-03-25 20:00] VITALS: BP 117/71
[2018-03-25] MEDS: KETOROLAC 30 MG/1 ML IV PRN (20:20)
[2018-03-26] MEDS: ACETAMINOPHEN 325 MG TABLET PO PRN (01:07)
[2018-03-26 01:24] VITALS: BP 110/68
[2018-03-26 05:52] LABS: MEAN CORPUSCULAR HEMOGLOBIN 25.6 pg (27.5-34.5); MEAN CORPUSCULAR HGB CONC 31.7 g/dL (33.2-36.2); MEAN CORPUSCULAR VOLUME 80.5 fL (81-97); RED BLOOD COUNT 3.33 x10^6/uL (4.38-5.82)
[2018-03-26 05:54] LABS: HCT (SEDRATE) 26.6 % (39.2-51.8)
[2018-03-26] MEDS: CEFTAROLINE 600 MG in SODIUM CHLORIDE 0.9% 100 ML IV SCH (05:57)
[2018-03-26] MEDS: HEPARIN 5,000 UNITS/ML, 1ML SQ SCH ×2 (05:57→13:53)
[2018-03-26 05:59] LABS: CHLORIDE 101 mmol/L (98-107)
[2018-03-26 06:10] LABS: ALANINE AMINOTRANSFERASE 22 U/L (12-78); ALBUMIN 1.8 g/dL (3.4-5.0); ALKALINE PHOSPHATASE 406 U/L (45-117); ANION GAP 6 mmol/L (5-15); CALCIUM 7.3 mg/dL (8.5-10.1); CREATININE 0.88 mg/dL (0.7-1.3); TOTAL PROTEIN 6.4 g/dL (6.4-8.2)
[2018-03-26 06:18] LABS: BASOPHILS # (AUTO) 0.02 x10^3/uL (0-0.1); BASOPHILS % (AUTO) 0 % (0-1); EOSINOPHILS # (AUTO) 0.09 x10^3/uL (0-0.4); EOSINOPHILS % (AUTO) 1 % (1-7); LYMPHOCYTES # (AUTO) 0.76 x10^3/uL (1-3.4); LYMPHOCYTES % (AUTO) 11 % (22-44); MD SCAN; MEAN PLATELET VOLUME 8.8 fL (7.4-10.4); MONOCYTES # (AUTO) 0.88 x10^3/uL (0.2-0.8); MONOCYTES % (AUTO) 13 % (2-9); NEUTROPHILS # (AUTO) 4.95 x10^3/uL (1.8-6.8); NEUTROPHILS % (AUTO) 74 % (42-75); PLATELET COUNT 97 x10^3/uL (130-400)
[2018-03-26] MEDS: INSULIN LISPRO 100 UNITS/ML, PEN SQ-INSULIN SCH ×2 (07:00→11:29)
[2018-03-26] MEDS: POTASSIUM CHLORIDE 20 MEQ TAB.ER.PRT PO SCH ×2 (08:00→09:24)
[2018-03-26] MEDS: GABAPENTIN 300 MG CAPSULE PO SCH (09:23)
[2018-03-26] MEDS: CHOLECALCIFEROL 1,000 UNIT TABLET PO SCH (09:24)
[2018-03-26] MEDS: FUROSEMIDE 20 MG TABLET PO SCH (09:24)
[2018-03-26] MEDS: TAMSULOSIN 0.4 MG CAP.ER.24H PO SCH (09:24)
[2018-03-26] MEDS: SPIRONOLACTONE 25 MG TABLET PO SCH (09:24)
[2018-03-26] MEDS: KETOROLAC 30 MG/1 ML IV PRN (11:22)
[2018-03-26] MEDS: POTASSIUM CHLORIDE 30 MEQ in SODIUM CHLORIDE 0.9% 1,000 ML IV SCH (11:22)
== END 2018-03-26 14:25 | disposition left against medical advice (07) | DRG 871 ==
LOC: ED 18:00 → EDIP 18:01 → 4EST 19:38
PROVIDERS: ADMIT Internal Medicine; ATTEND Internal Medicine
PROC: 0T9B70Z Drainage of Bladder with Drainage Device, Via Natural or Artificial Opening (ICD-10-PCS; principal; 2018-03-25)
DX: A41.9 Sepsis, unspecified organism (principal); E43 Unspecified severe protein-calorie malnutrition; G93.41 Metabolic encephalopathy; E87.1 Hypo-osmolality and hyponatremia; M86.9 Osteomyelitis, unspecified; L03.113 Cellulitis of right upper limb; Z68.43 Body mass index [BMI] 50.0-59.9, adult; Z86.14 Personal history of Methicillin resistant Staphylococcus aureus infection; D50.9 Iron deficiency anemia, unspecified; E87.6 Hypokalemia; E78.5 Hyperlipidemia, unspecified; E66.01 Morbid (severe) obesity due to excess calories; E11.69 Type 2 diabetes mellitus with other specified complication; I87.8 Other specified disorders of veins; N40.0 Benign prostatic hyperplasia without lower urinary tract symptoms; F10.10 Alcohol abuse, uncomplicated; Z53.21 Procedure and treatment not carried out due to patient leaving prior to being seen by health care provider; M81.0 Age-related osteoporosis without current pathological fracture; B96.89 Other specified bacterial agents as the cause of diseases classified elsewhere; D75.82 Heparin induced thrombocytopenia (HIT); E11.42 Type 2 diabetes mellitus with diabetic polyneuropathy; I11.9 Hypertensive heart disease without heart failure; Z79.4 Long term (current) use of insulin; Z87.891 Personal history of nicotine dependence; Z91.14 Patient's other noncompliance with medication regimen
CPT/HCPCS: 36415; 71045; 80053; 80307; 81001; 82140; 82962; 83605; 83735; 85025; 85610; 85651; 85730; 86140; 87040; 87077; 87086; 87147; 87181; 87186; 93005; 96361; 96374; 96375; 99285; G0378; J0712; J1644; J1885; J3480; Q0162; Q9967; J1815; J3475; J7030; J7040